=== PATIENT | male | born 1950 | race Caucasian/White ===

== ENCOUNTER 2024-10-12 08:11 | Observation (INO) | payer MEDICARE, SELFPAY ==
[2024-10-12] VITALS (12 sets, daily range): BP systolic 116–136; BP diastolic 70–81; PULSE 65–96; RESP 12–18; TEMP 36.3–36.6; O2SAT 94–98; BMI 34.7
--- NOTE | ~2024-10-12 | MR_ITS ---
MR brain/brain stem wo/w con Ordering provider: Stevo Anglin History: 74 years Male with . TIA . Comparison: CT head performed yesterday. Technique: MRI brain was performed with and without contrast. 20 mL ProHance was given IV. FINDINGS: BONES: Normal. CRANIOCERVICAL JUNCTION: normal. PITUITARY: Normal. MAJOR INTRACRANIAL VESSELS: Normal flow void. OPTIC NERVES AND CRANIAL NERVES VII AND VIII COMPLEXES: Grossly normal. BRAIN PARENCHYMA AND CSF SPACES: scattered T2 and FLAIR hyperintense signal areas are seen in the d eep white matter bilaterally. 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 The brainstem a nd cerebellum are normal. No acute or chronic intracranial hemorrhage. No extra axial fluid collectio ns. Diffusion weighted and ADC mapping images reveal no recent ischemia. No midline shift or mass eff ect. PARANASAL SINUSES: Minimal bilateral ethmoid sinus disease. Normal. Left nasal septal deviation. MASTOIDS: Normal SUPERFICIAL/SURROUNDING SOFT TISSUES: Normal. IMPRESSION: No acute intracranial process. Few scattered T2 and FLAIR hyperintense signal areas suggestive of deep white matter ischemic changes .. No enhancing lesions seen. Reviewed, dictated and finalized at location A. IMPRESSION: No acute intracranial process. Few scattered T2 and FLAIR hyperintense signal areas suggestive of deep white m atter ischemic changes.. No enhancing lesions seen.
--- NOTE | ~2024-10-12 | CT_ITS ---
EXAMINATION: CTA BRAIN/CAROTID DATE: 10/12/2024 09:45 INDICATION: Transient ischemic episode with dizziness. TECHNIQUE: Computed tomographic angiography (CTA) of the head and neck was performed with 100 mL Omni paque-350 intravenous contrast. Multiplanar reconstructions and maximum intensity projection 3D-recon structions of the carotid arteries and of the intracranial arteries were created by the technologist on a separate workstation. Precontrast CT of the head was also obtained. Automated exposure control and iterative reconstruction technique were employed.The dose-length product was 1842.79 mGy-cm. COMPARISON: None. FINDINGS: Carotid arteries: Small amount of nonhemodynamically significant atherosclerotic plaque along the normal caliber aortic arch and the great vessels arising from the arch. Bilateral vertebral arteries are codominant with n o hematoma significant stenosis. There is 30% stenosis of the right carotid bulb relative to normal d istal artery lumen diameter (NASCET criteria). There is small amount of atherosclerotic plaque with 0 % stenosis of the left carotid bulb relative to normal distal artery lumen diameter. Head: No acute intracranial hemorrhage, acute infarction or abnormal extra axial fluid collection. Ventricl es are normal and symmetric. No mass/mass effect. Abnormally enhancing brain lesions on the postcontr ast imaging. Changes of bilateral intraocular lens replacement. The orbits, paranasal sinuses and mas toid air cells are normal. Intracranial arteries There is no hemodynamically significant stenosis in the vertebral, basilar and internal carotid arter ies. Vertebral arteries are codominant. There are no aneurysms identified. Both A1 and P1 segments a re patent. There is also a patent anterior communicating artery. Cerebral arterial arborization appea rs symmetric. IMPRESSION: 1. 30% stenosis of the right carotid bulb relative to normal distal artery lumen diameter (NASCET cri teria). 2. 0% stenosis of the left carotid bulb relative to normal distal artery lumen diameter. 3. Unremarkable cerebral CT angiogram with no hemodynamically significant stenosis, aneurysm or disse ction. 4. Normal brain with no acute intracranial process or abnormally enhancing brain lesions. Reviewed, dictated and finalized at location A. IMPRESSION: 1. 30% stenosis of the right carotid bulb relative to normal distal artery lume n diameter (NASCET criteria). 2. 0% stenosis of the left carotid bulb relative to normal distal artery lumen diameter. 3. Unremarkable cerebral CT angiogram with no hemodynamically significant steno sis, aneurysm or dissection. 4. Normal brain with no acute intracranial process or abnormally enhancing brai n lesions.
--- NOTE | 2024-10-12 08:13 | ECG_ITS ---
Test Date: 2024-10-12 08:15:43 Measurements Intervals [place] Rate: 77 P: 35 HI: 188 QRS: 13 QRSD: 102 T: 35 QT: 398 QTc: 453 Interpretive Statements SINUS RHYTHM LOW QRS VOLTAGE IN PRECORDIAL LEADS POSSIBLE INFERIOR MYOCARDIAL INFARCTION, AGE INDETERMINATE ANTEROSEPTAL INFARCT, AGE INDETERMINATE BASELINE ARTIFACT- I, III, AVR, AVL ABNORMAL ECG No previous ECG available for comparison Electronically Signed On 10-12-2024 13:02:35 CDT by Daniel Davis D.O.
[2024-10-12 08:24] LABS: Glucose Point of Care 222 mg/dl (65-105)
--- NOTE | 2024-10-12 08:44 | ED_ITS ---
HPI - General Adult General Chief complaint: Dizziness Stated complaint: dizziness Time Seen by Provider: 10/12/24 08:19 History of Present Illness HPI narrative: 74-year-old male presents emergency department for evaluation for episode lightheaded dizziness altered mental status and wobbling gait. Does have a prior history of CVA but denies any prior history of AFib with RVR. Upon arrival emergency department patient does feel back to his baseline. Patient initially walked into his daughter's home and she noticed that he did not look well and patient was complaining unsteady gait. They did give him food and symptoms lasted approximately 1 hour. EMS was called to transport the patient to the emergency department and patient was reportedly having some episodes of AFib with RVR Related Data Home Medications ?Medication ?Instructions ?Recorded ?Confirmed ?Last Taken ?Type aspirin 81 mg tablet,delayed 81 mg PO DAILY 04/30/19 10/12/24 10/12/24 History release atorvastatin 20 mg tablet 20 mg PO QPM 04/30/19 10/12/24 Unknown History carvedilol 3.125 mg PO BID 04/30/19 10/12/24 10/12/24 History metformin 1,500 mg PO 0800 04/30/19 10/12/24 1 Day Ago History ~04/29/19 zolpidem 10 mg PO QHS PRN insomnia 04/30/19 10/12/24 Unknown History empagliflozin 25 mg tablet 25 mg PO DAILY 10/12/24 10/12/24 Unknown History (Jardiance) ezetimibe 10 mg tablet 10 mg PO QPM 10/12/24 10/12/24 Unknown History furosemide 20 mg tablet 20 mg PO DAILY 10/12/24 10/12/24 10/12/24 History multivitamin (Daily Multi-Vitamin 1 tablet PO DAILY 10/12/24 10/12/24 10/12/24 History tablet) sacubitril 24 mg-valsartan 26 mg 1 tablet PO BID 10/12/24 10/12/24 10/12/24 History tablet (Entresto) Allergies Allergy/AdvReac Type Severity Reaction Status Date / Time No Known Allergies Allergy Verified 10/12/24 08:20 Review of Systems 2 Review of Systems: All systems reviewed & are unremarkable except as noted in HPI and below PMFSH Past Medical History Medical History (Updated 10/12/24 @ 18:16 by Stevo Anglin MD) Transient ischemic attack Gastroesophageal reflux disease Depression with anxiety Obstructive sleep apnea Type 2 diabetes mellitus Dyslipidemia Arthritis Hearing loss Vision loss Hypertension Coronary artery disease Surgical History Surgical History History of bilateral cataract extraction History of total left hip arthroplasty (2012) History of partial colectomy (2010) for diverticulitis History of cardiac catheterization History of coronary artery stent placement History of left hip replacement Family History Family History Other Cerebrovascular accident Malignant neoplasm of prostate Social History Social History Social History: Surrogate medical decision maker: Mica Roblero, spouse. Code status: Full code. Smoking status: Never smoker Alcohol intake: never Substance use: never Do You Feel Safe in your Home?: Yes Lack of Transportation: No Lack of Food: Never True Current Housing: I Have Housing Concerned About Future Housing: No Difficulty Paying Gas/Electric Bills: No Difficulty Paying for Meds: No Currently Unemployed: No Education: High School Diploma/GED Difficulty w/ Childcare or Family Care: No Living arrangements: with family Occupation/Education: retired Spiritual care concerns: No Exam 2 Narrative: APPEARANCE: Well appearing, no pain, no distress, well-nourished. HEAD: normocephalic, atraumatic. EYES: PERRLA/EOMI, conjunctivae clear. NOSE: Normal no drainage EARS:TMS clear with good light reflex. THROAT: Pharynx clear, no exudate. NECK: Supple. No adenopathy, no masses. RESPIRATORY: Airway patent, respirations nonlabored. Clear to auscultation bilaterally, no rales, rhonchi, wheezing. CARDIOVASCULAR: Regular rate and rhythm without murmurs rubs or gallops. ABDOMINAL: Soft, nontender, nondistended, normal bowel sounds MUSCULOSKELETAL: Moves all extremities. Strength/ROM intact, No edema, No calf tenderness. NEURO: Alert. Cranial nerves II through XII intact. Good gait. Good coordination. NIH score of 0 SKIN: Warm, dry. Normal Color Course Vital Signs Vital signs: Vital Signs Temperature 97.4 F L 10/12/24 08:11 Pulse Rate 78 04/26/25 08:11 Respiratory Rate 12 10/12/24 08:11 Blood Pressure 132/76 10/12/24 08:11 Pulse Oximetry 98 10/12/24 08:11 Oxygen Delivery Room Air 10/12/24 08:11 Temperature 97.8 F 10/12/24 13:00 Pulse Rate 83 10/12/24 13:37 Respiratory Rate 16 10/12/24 13:00 Blood Pressure 136/76 10/12/24 13:00 Pulse Oximetry 97 10/12/24 13:00 Oxygen Delivery Room Air 10/12/24 08:11 Medical Decision Making MDM Narrative Medical decision making narrative: 74-year-old male present to the emergency department for evaluation for a 1 hour episode of unstable gait altered mental status and intermittent AFib. Since arriving to the emergency department patient has had no further neurologic events had no episodes of atrial fibrillation. Patient is currently afebrile with no leukocytosis hemoglobin of 15.1 with no acute abnormalities on the patient's CMP other than an elevated blood sugar. Patient had no acute findings on his CTA. Case is discussed with Neurology and patient was admitted to the hospitalist for further workup including an MRI. Differential Diagnosis Differential Diagnosis: CVA, TIA, AFib Vital Signs Vital Signs: Vital Signs Temperature 97.4 F L 10/12/24 08:11 Pulse Rate 78 10/12/24 08:11 Respiratory Rate 12 10/12/24 08:11 Blood Pressure 132/76 10/12/24 08:11 Pulse Oximetry 98 10/12/24 08:11 Oxygen Delivery Room Air 10/12/24 08:11 Temperature 97.8 F 10/12/24 13:00 Pulse Rate 83 10/12/24 13:37 Respiratory Rate 16 10/12/24 13:00 Blood Pressure 136/76 10/12/24 13:00 Pulse Oximetry 97 10/12/24 13:00 Oxygen Delivery Room Air 10/12/24 08:11 Lab Data Lab results reviewed: Yes I reviewed the patient's lab results. 10/12/24 08:50 10/12/24 08:50 Labs: Lab Results 10/12/24 10/12/24 Range/Units 08:20 08:50 WBC 5.6 (4.5-10.0) K/mm3 RBC 4.86 (4.6-6.20) M/mm3 Hgb 15.1 (14.0-18.0) g/dL Hct 46.8 (42.0-52.0) % MCV 96.3 (80-100) fl MCH 31.1 (26-34) pg MCHC 32.3 (32-36) g/dl RDW 13.8 (11.5-14.5) % Plt Count 190 (150-375) k/mm3 MPV 10.0 (7.4-10.4) fl Immature Gran % (Auto) 0.4 (0-0.5) % Neut % (Auto) 69.6 (45.5-73.1) % Lymph % (Auto) 20.0 (18.3-44.2) % [place] % (Auto) 8.2 (2.6-8.5) % Eos % (Auto) 1.1 (0-4.4) % Baso % (Auto) 0.7 (0.2-1.2) % Lymph # (Auto) 1.12 (0.9-3.2) K/mm3 [place] # (Auto) 0.5 (0.1-0.6) K/mm3 Eos # (Auto) 0.1 (0-0.3) K/mm3 Baso # (Auto) 0.0 (0.0-0.1) K/mm3 Abs Immat Gran (auto) 0.02 (0.00-0.031) K/mm3 Absolute Neuts (auto) 3.9 (1.3-6.7) K/mm3 Absolute Nucleated RBC 0.000 (0.0-0.012) K/mm3 Nucleated RBC % 0.0 (0.0-0.2) % Sodium 139 (137-145) mmol/L Potassium 3.8 (3.4-5.0) mmol/L Chloride 107 (98-107) mmol/L Carbon Dioxide 23 (22-30) mmol/L Anion Gap 9 (4-12) mmol/L BUN 24 H (9-20) mg/dL Creatinine 0.77 (0.7-1.3) mg/dL Estim Creat Clear Calc 90 ml/min Estimated GFR > 60 (59 - ) Glucose 230 H (65-110) mg/dL POC Capillary Glucose 222 H (65-105) mg/dl Calcium 8.6 (8.4-10.2) mg/dL Magnesium 2.1 (1.6-2.3) mg/dL Total Bilirubin 0.6 (0.2-1.3) mg/dL AST 25 (17-59) U/L ALT 27 (6-50) U/L Alkaline Phosphatase 70 (38-126) U/L Total Protein 7.0 (6.3-8.2) g/dL Albumin 4.0 (3.5-5.1) g/dL TSH (Reflex) 1.790 (0.465-4.68) uIU/mL Imaging Data Radiologist's impression: Impressions Head/Neck CTA 10/12/24 10:00 IMPRESSION: 1. 30% stenosis of the right carotid bulb relative to normal distal artery lumen diameter (NASCET criteria). 2. 0% stenosis of the left carotid bulb relative to normal distal artery lumen diameter. 3. Unremarkable cerebral CT angiogram with no hemodynamically significant stenosis, aneurysm or dissection. 4. Normal brain with no acute intracranial process or abnormally enhancing brain lesions. Discharge Plan Discharge Clinical Impression: Transient ischemic attack Patient Disposition: Still a Patient Condition: Serious Quality Stroke Scale Stroke Scale 1: 1a Level of consciousness: alert-0 1b Level of consciousness questions: answers both correctly-0 1c Level of consciousness commands: obeys both correctly-0 2 Best gaze: normal-0 3 Visual: no visual loss-0 4 Facial palsy: normal-0 5a Motor: left arm: no drift-0 5b Motor: right arm: no drift-0 6a Motor: left leg: no drift-0 6b Motor: right leg: no drift-0 7 Limb ataxia: absent-0 8 Sensory: normal-0 9 Best language: no aphasia-0 10 Dysarthria: normal-0 11 Extinction and inattention: no abnormality-0 Level:: 0
[2024-10-12 08:58] LABS: Basophils Percent Auto 0.7 % (0.2-1.2); Eosinophils Absolute Auto 0.1 K/mm3 (0-0.3); Eosinophils Percent Auto 1.1 % (0-4.4); Hematocrit 46.8 % (42.0-52.0); Hemoglobin 15.1 g/dL (14.0-18.0); Immature Granulocyte Absolute 0.02 K/mm3 (0.00-0.031); Immature Granulocyte Percent A 0.4 % (0-0.5); Lymphocytes Absolute Auto 1.12 K/mm3 (0.9-3.2); Mean Corpuscular HGB Conc 32.3 g/dl (32-36); Mean Corpuscular Hemoglobin 31.1 pg (26-34); Mean Corpuscular Volume 96.3 fl (80-100); Monocytes Absolute Auto 0.5 K/mm3 (0.1-0.6); Monocytes Percent Auto 8.2 % (2.6-8.5); Neutrophils Absolute Auto 3.9 K/mm3 (1.3-6.7); Neutrophils Percent Auto 69.6 % (45.5-73.1); Platelet Count Result 190 k/mm3 (150-375); Red Blood Count 4.86 M/mm3 (4.6-6.20); Red Cell Distribution Width 13.8 % (11.5-14.5); White Blood Count 5.6 K/mm3 (4.5-10.0)
--- OUTSIDE RECORDS SUMMARY | 2024-10-12 08:59 | XMS_ITS | Encounter Summary ---
Author Organization [facility] Address [facility] [place] [address] Care Team Providers Care Track Rider Name Role Phone Vipul Núñez Bianca SHAFER Primary Care Provider + Christopher Cain MD Unavailable [phone] Ian Sandoval MD Unavailable Encounter Details Date Type Department Care Team (Late st Contact Info) Description 04/28/2021 Abstract [facility] [address] Yisel Alanis MA Social History Tobacco Use Types Packs/Day Years Used Date Smoking Tobacco: Never Smokeless Tobacco: Never Alcohol Use Standard Drinks/Week Comments No 0 (1 standard drink = 0.6 oz pur e alcohol) AUDIT-C Answer Date Recorded Frequency of Alcohol Consumption Never 07/30/2018 Average Number of Drinks Not on file 019 Frequency of Binge Drinking Not on file 07/20 PHQ-2 Answer Date Recorded PHQ-2 Score - If the patient scores above 3, please move on to questions 3-9 4 08/27/2020 Sex and Gender Information Value Date Recorded Sex Assigned at Male 07/19/2024 8:07 AM CLOTH REELER Legal Sex Male 8:19 AM CLOTH REELER Gender Identity Male 07/21/2021 4:30 AM CLOTH REELER Sexual Orientation Not on file Occupation Industry Job Start Date Job End Date Not on file Not on file Not on file Not on file COVID-19 Exposure Response Date Recorded In the last month, have you been in contact with someone who was confirmed or suspected to have Coronavirus / COVID-19? No / Unsure 04/23/2021 9:20 AM CDT documented as of this encounter Plan of Treatment Upcoming Encounters Date Type Department Care Team (Late st Contact Info) Description 10/15/2024 8:40 AM CDT Office Visit [facility] Family & Internal Medicine - [address] [phone] Vipul Núñez [place] [address] [place] [address] 01/31/2025 11:45 AM CDT Office Visit [facility] [address] Christopher Cain MD 3 [facility] [address] [place] [phone] documented as of this encounter Procedures Procedure Name Priority Date/Time Associated Diagnosis Comments COMPREHENSIVE METABOLIC PANEL Routine 04/27/2021 LIPID PANEL Routine 04/27/2021 documented in this encounter Results * (ABNORMAL) COMPREHENSIVE METABOLIC PANEL (04/27/2021) SODIUM S/P/B 142 POTASSIUM S/P/B 5.0 CO2 27 CHLORIDE S/P/B 105 GLUCOSE 167 mg/dL CALCIUM S/P/B 9.3 BUN 21 CREATININE S/P/B 0.94 0.7 - 1.3 EGFR AFR. AMER. 95(A) <=90 EGFR NON-AFR. AMER. 82 <=90 ALKALINE PHOSPHATASE S/P/B 91 ALT 29 AST 17 BILIRUBIN TOTAL S/P/B 0.6 ALBUMIN S/P/B 4.1 3.5 - 5.0 TOTAL PROTEIN S/P/B 6.5 GLOBULIN 2.4 04/27/2021 [facility] Final Result * LIPID PANEL (04/27/2021) CHOLESTEROL 131 HDL 41 TRIGLYCERIDES 139 NON HDL CHOLESTEROL 90 LDL (CALCULATED) 68 04/27/2021 us [facility] Final Result documented in this encounter Visit Diagnoses Not on filedocumented in this encounter Additional Health Concerns Infection Onset Date Last Indicated Resolved Time COVID-19 Rule Out 06/30/2021 06/30/2021 2021 12:31 AM CLOTH REELER Assessment Noted Time PHQ-9 Depression Total Score: 11 021 9:07 AM CLOTH REELER documented as of this encounter Care Teams Track Rider Relationship Specialty Start Date End Date Vipul Núñez DO [address] [place] [phone] PCP - General FAMILY PRACTICE 06/14/18 Christopher Cain MD 3 [facility] [address] [place] [address] [place] Commercial Front Load Operator CARDIOVASCULAR DISEASE 07/19/18 Ian Sandoval MD 3 [facility] [address] [place] [address] COLON/RECTAL SURGERY 02/27/20 documented as of this encounter
--- OUTSIDE RECORDS SUMMARY | 2024-10-12 08:59 | XMS_ITS | Encounter Summary ---
Author Organization [facility] Address [address] [place] [address] Care Team Providers Care Graphic Pre Press Trades Worker Name Role Phone FrancescoVipul cano Bianca SHAFER Primary Care Provider + Christopher Cain MD Unavailable [phone] Ian Sandoval MD Unavailable [phone] Encounter Details Date Type Department Care Team (Late Contact Info) Description 08/07/2018 Abstract [facility] at [address] [phone] Yisel Alanis MA Social History Tobacco Use Types Packs/Day Years Used Date Smoking Tobacco: Never Smokeless Tobacco: Never Alcohol Use Standard Drinks/Week Comments No 0 (1 standard drink = 0.6 oz pur e alcohol) AUDIT-C Answer Date Recorded Frequency of Alcohol Consumption Never 07/30/2018 Average Number of Drinks Not on file 019 Frequency of Binge Drinking Not on file 07/20 Sex and Gender Information Value Date Recorded Sex Assigned at Male 07/19/2024 8:07 AM BEAMER HELPER Legal Sex Male 8:19 AM BEAMER HELPER Gender Identity Male 07/21/2021 4:30 AM BEAMER HELPER Sexual Orientation Not on file documented as of this encounter Plan of Treatment Upcoming Encounters Date Type Department Care Team (Late Contact Info) Description 10/15/2024 8:40 AM CDT Office Visit [facility] Medical Group Family & Internal Medicine [address] [place] [address] Vipul Núñez, [address] [place] [address] 01/31/2025 11:45 AM CDT Office Visit [facility] [phone] [place] [address] Christopher Cain MD 3 [facility] [address] [place] [phone] documented as of this encounter Procedures Procedure Name Priority Date/Time Associated Diagnosis Comments LIPID PANEL Routine 11/16/2018 LDL, CHOLESTEROL Routine 08/06/2018 LIPOPROTEIN A Routine 08/06/2018 documented in this encounter Results * LIPID PANEL (11/16/2018) CHOLESTEROL 126 HDL 35 TRIGLYCERIDES 103 NON HDL CHOLESTEROL 91 LDL (CALCULATED) 72 11/16/2018 [facility] Final Result * LIPOPROTEIN A (08/06/2018) LIPOPROTEIN (A) <10 <75 08/06/2018 us [facility] Final Result * LDL, CHOLESTEROL (08/06/2018) DIRECT LDL 89 08/06/2018 us [facility] Final Result documented in this encounter Visit Diagnoses Not on filedocumented in this encounter Additional Health Concerns Infection Onset Date Last Indicated Resolved Time COVID-19 Rule Out 02/29/2020 02/29/2020 03/01/2020 10:51 PM CDT COVID-19 Rule Out 09/19/2020 09/19/2020 09/20/2020 4:40 PM CDT COVID-19 Rule Out 06/30/2021 06/30/2021 2021 12:31 AM BEAMER HELPER Assessment Noted Time PHQ-9 Depression Total Score: 18 019 8:41 AM BEAMER HELPER documented as of this encounter Care Teams Graphic Pre Press Trades Worker Relationship Specialty Start Date End Date Vipul Núeñz DO [address] [place] [phone] PCP - General FAMILY PRACTICE 06/14/18 Christopher Cain MD 3 [facility] [address] [place] [address] [place] CARDIOVASCULAR DISEASE 07/19/18 Ian Sandoval MD 3 [facility] [address] [place] [phone] COLON/RECTAL SURGERY 02/27/20 documented as of this encounter
--- OUTSIDE RECORDS SUMMARY | 2024-10-12 08:59 | XMS_ITS | Encounter Summary ---
Author Organization [facility] Address [facility] [place] [address] Care Team Providers Care Pick Up Man Name Role Phone Vipul Núñez Bianca SHAFER Primary Care Provider + Christopher Cain MD Unavailable [phone] Ian Sandoval MD Unavailable [phone] Encounter Details Date Type Department Care Team (Late st Contact Info) Description 10/09/2020 Abstract [facility] [address] Yisel Alanis MA Social History Tobacco Use [...] Sex Assigned at Male 07/19/2024 8:07 AM MOBILE HOME SERVICER Legal Sex Male 8:19 AM MOBILE HOME SERVICER Gender Identity Male 07/21/2021 4:30 AM MOBILE HOME SERVICER Sexual Orientation Not on file Occupation Industry Job Start Date Job End Date Not on file Not on file Not on file Not on file COVID-19 Exposure Response Date Recorded In the last month, have you been in contact with someone who was confirmed or suspected to have Coronavirus / COVID-19? No / Unsure 10/08/2020 7:44 PM CDT documented as of this encounter Plan of Treatment Upcoming Encounters Date Type Department Care Team (Late st Contact Info) Description 10/15/2024 8:40 AM CDT Office Visit [facility] Medical Group Family & Internal Medicine - [address] [phone] Vipul Núñez DO [address] [place] [address] 01/31/2025 11:45 AM CDT Office Visit [facility] [phone] Christopher Cain MD 3 [facility] [address] [place] [phone] documented as of this encounter Procedures Procedure Name Priority Date/Time Associated Diagnosis Comments BASIC METABOLIC PANEL Routine 07/27/2023 KAPPA LAMBDA FREE RATIO (QST) Routine 11/06/2020 LIPID PANEL Routine 10/08/2020 CK (CPK) Routine 10/08/2020 documented in this encounter Results * (ABNORMAL) BASIC METABOLIC PANEL (07/27/2023) SODIUM S/P/B 141 POTASSIUM S/P/B 4.8 CO2 33 CHLORIDE S/P/B 105 GLUCOSE 172 mg/dL CALCIUM S/P/B 9.4 BUN 25 CREATININE S/P/B 0.84 0.7 - 1.3 EGFR NON-AFR. AMER. 93(A) <=90 07/27/2023 us Default History Genericprovider LABORATORY Final Result * KAPPA LAMBDA FREE RATIO (QST) (11/06/2020) KAPPA/LAMBDA FREE 1.35 0.26 - 1.65 KAPPA LIGHT CHAIN FREE (U) 19.4 3.3 - 19.4 LAMBDA LIGHT CHAIN FREE (U) 24HR 14.4 5.7 - 26.3 11/06/2020 us Doc [facility] Final Result * CK (CPK) (10/08/2020) CPK 147 10/08/2020 us [facility] Final Result * LIPID PANEL (10/08/2020) CHOLESTEROL 154 HDL 35 TRIGLYCERIDES 148 NON HDL CHOLESTEROL 119 LDL (CALCULATED) 94 10/08/2020 us Doc [facility] Final Result documented in this encounter Visit Diagnoses Not on filedocumented in this encounter Additional Health Concerns Infection Onset Date Last Indicated Resolved Time COVID-19 Rule Out 06/30/2021 06/30/2021 2021 12:31 AM MOBILE HOME SERVICER Assessment Noted Time PHQ-9 Depression Total Score: 11 021 9:07 AM MOBILE HOME SERVICER documented as of this encounter Care Teams Pick Up Man Relationship Specialty Start Date End Date Vipul Núñez DO [address] [place] [address] PCP - General FAMILY PRACTICE 06/14/18 Christopher Cain MD 3 [facility] [address] [place] [phone] [place] Principal Statistical Programmer CARDIOVASCULAR DISEASE 07/19/18 Ian Sandoval MD 3 [facility] [address] [place] [phone] COLON/RECTAL SURGERY 02/27/20 documented as of this encounter
--- OUTSIDE RECORDS SUMMARY | 2024-10-12 08:59 | XMS_ITS | Encounter Summary ---
Author Organization [facility] Address [address] [place] [address] Care Team Providers Care Publishing Specialist Name Role Phone Vipul Núñez Primary Care Provider + Christopher Cain MD Unavailable [phone] Ian Sandoval MD Unavailable [phone] Encounter Details Date Type Department Care Team (Late st Contact Info) Description 07/05/2024 [facility] [phone] Christopher Cain MD [address] [phone] Blood test Social History Tobacco Use Types Packs/Day Years Used Date Smoking Tobacco: Never Smokeless Tobacco: Never Comments:na Alcohol Use Standard Drinks/Week Comments Not Currently 0 (1 standard drink = 0.6 oz pur e alcohol) AUDIT-C Answer Date Recorded Q1: How often do you have a drink containing alcohol? Monthly or less 11/28/2022 Q2: How many drinks containi ng alcohol do you have on a typical day when you are drinking? Patient does not drink Q3: How often do you have si x or more drinks on one occasion? Never 11/28/2022 PHQ-2 Answer Date Recorded Patient Health Questionnaire-2 Score 1 03/13/2024 Sex and Gender Information Value Date Recorded Sex Assigned at Male 07/19/2024 8:07 AM HOTBED TRANSFER OPERATOR Legal Sex Male 8:19 AM HOTBED TRANSFER OPERATOR Gender Identity Male 07/21/2021 4:30 AM HOTBED TRANSFER OPERATOR Sexual Orientation Not on file Occupation Industry Job Start Date Job End Date Not on file Not on file Not on file Not on file documented as of this encounter Plan of Treatment Upcoming Encounters Date Type Department Care Team (Late st Contact Info) Description 10/15/2024 8:40 AM CDT Office Visit [facility] Medical [facility] Family & Internal Medicine - [address] [phone] Vipul Núñez DO [address] [place] [address] 01/31/2025 11:45 AM CDT Office Visit [facility] [phone] Christopher Cain MD [address] [phone] documented as of this encounter Visit Diagnoses Not on filedocumented in this encounter Additional Health Concerns Assessment Noted Time PHQ-9 Depression Total Score: 2 11/29/19 23 8:16 AM CDT documented as of this encounter Care Teams Publishing Specialist Relationship Specialty Start Date End Date Vipul Núñez DO [address] [place] [address] PCP - General FAMILY PRACTICE 06/14/18 Christopher Cain MD 3 [facility] [address] [place] [phone] [place] [employer] Buffer CARDIOVASCULAR DISEASE 07/19/18 Ian Sandoval MD 3 [facility] [address] [place] [phone] COLON/RECTAL SURGERY 02/27/20 documented as of this encounter
--- OUTSIDE RECORDS SUMMARY | 2024-10-12 08:59 | XMS_ITS | Clinical Summary ---
Author Organization [facility] Address [address] [place] [address] Care Team Providers Care Hearing Aid Repairer Name Role Phone BrooklynnVipul doe Bianca SHAFER Primary Care Provider + Christopher Cain MD Unavailable [phone] Ian Sandoval MD Unavailable [phone] Allergies No known active allergies Medications aspirin EC (ECOTRIN) 81 MG tablet Take 1 tablet (81 mg total) by mouth nightly. Active Glucose Blood (ONE TOUCH ULTRA TEST STRIPS) test stripIndications: Type 2 diabetes mellitus with diabetic mononeuropathy, without long-term current use of insulin ([facility]) 1 each by Other route daily. 100 each 3 03/12/20 19 Active CPAP SUPPLIESIndicatio ns:CATE (obstructive sleep apnea) Use nightly as instructed 3 Device 10/22/19 20 Active CPAP TUBINGIndications :CATE (obstructive sleep apnea) Change as instructed 3 each 10/22/19 20 Active CPAP MASKIndications:O SA (obstructive sleep apnea) Use nightly as directed 1 each 10/22/19 20 Active NITROGLYCERIN 0.[address] 1 TABLET UNDER THE TONGUE EVERY 5 MINUTES NEEDED FOR CHEST PAIN (MAXIMUM OF 3 DOSES). 25 tablet 1 06/30/19 22 Active Blood Glucose Monitoring Suppl (ONE TOUCH ULTRA 2) w/Device KitIndications:Ty pe 2 diabetes mellitus with diabetic mononeuropathy, without long-term current use of insulin ([facility] HHS/HCC) Check blood sugar once daily in AM when fasting 1 kit 04/27/20 22 Active Lancets (ONETOUCH ULTRASOFT) lancetsIndication s:Type 2 diabetes mellitus with diabetic mononeuropathy, without long-term current use of insulin ([facility] HHS/[facility]) Check blood sugar once daily in AM when fasting 1 each 04/27/20 22 Active Multiple Vitamins-Minerals (CENTRUM SILVER 50+MEN OR) Take 1 tablet by mouth daily. Active zolpidem (AMBIEN) 10 MG tabletIndications :Primary insomnia TAKE 1 TABLET NIGHTLY NEEDED FOR SLEEP 30 tablet 2 09/07/19 24 Active ezetimibe (ZETIA) 10 MG tablet Take 1 tablet (10 mg total) by mouth daily. 90 tablet 3 01/19/20 24 2024 Active carvedilol (COREG) 3.125 MG tabletIndications :Essential hypertension take 1 tablet by mouth twice a day 180 tablet 1 02/26/20 24 Active ENTRESTO 24-26 MG tablet take 1 tablet by mouth twice a day 60 tablet 5 03/20/20 24 Active tirzepatide (MOUNJARO) 2.5 MG/0.5ML injectionIndicati ons:Diabetes Mellitus Inject 2.5 mg into the skin every 7 days. Indications: Diabetes 2 mL 07/19/19 25 Active JARDIANCE 25 MG tabletIndications :Type 2 diabetes mellitus with diabetic mononeuropathy, without long-term current use of insulin ([facility] HHS/[facility]),Chronic combined systolic and diastolic congestive heart failure ([facility] HHS/HCC) TAKE 1 TABLET BY MOUTH EVERY DAY 90 tablet 1 07/30/19 25 Active furosemide (LASIX) 20 MG tabletIndications :Chronic heart failure with preserved ejection fraction ([facility] HHS/HCC) TAKE 1 TABLET BY MOUTH EVERY DAY 90 tablet 09/10/19 25 Active metFORMIN ER (GLUCOPHAGE-XR) 500 MG 24 hr tabletIndications :Type 2 diabetes mellitus with diabetic mononeuropathy, without long-term current use of insulin ([facility] HHS/HCC) TAKE 3 TABLETS (1,500 MG TOTAL) BY MOUTH DAILY WITH BREAKFAST 270 tablet 2 09/21/19 25 Active atorvastatin (LIPITOR) 80 MG tabletIndications :Mixed hyperlipidemia TAKE 1 TABLET BY MOUTH EVERYDAY AT BEDTIME 90 tablet 10/08/19 25 Active metFORMIN ER (GLUCOPHAGE-XR) 500 MG 24 hr tabletIndications :Type 2 diabetes mellitus with diabetic mononeuropathy, without long-term current use of insulin ([facility]) Take 3 tablets (1,500 mg total) by mouth daily with breakfast. 270 tablet 2 12/25/19 24 2024 Discontinued atorvastatin (LIPITOR) 80 MG tabletIndications :Mixed hyperlipidemia TAKE 1 TABLET BY MOUTH EVERYDAY AT BEDTIME 90 tablet 07/08/19 25 2024 Discontinued Active Problems Problem Noted Date Diagnosed Date Aneurysm of ascending aorta without rupture 06/21 Chronic heart failure with p reserved ejection fraction ([facility]) 07/19/2024 Major depressive disorder wi th single episode, in partial remission 06/07/2023 TIA (transient ischemic attack) 09/02/2022 Morbid (severe) obesity due to excess calories 0 08/23/2022 Hyperlipidemia associated wi th type 2 diabetes mellitus ([facility]) 08/27/2020 S/P carpal tunnel release 03/04/2020 Erectile dysfunction, unspecified erectile dysfu nction type 03/04/2020 Wrigth's cyst of knee, right 06/05/2019 BMI 39.0-39.9,adult 09/17/2018 CATE (obstructive sleep apnea) 07/30/2018 Type 2 diabetes mellitus wit h diabetic mononeuropathy, without long-term current use of insulin ([facility]) 06/25/2018 Anxiety 06/25/2018 Hypertension 06/25/2018 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 06/25/2018 Hyperlipidemia, unspecified hyperlipidemia type 06/25/2018 Primary insomnia 06/25/2018 Knee pain 09/02/2016 History of coronary artery stent placement 02/04 Hernia of anterior abdominal wall 02/14/2014 Cardiomyopathy ([facility]) 07/03/2013 CHF (congestive heart failure) ([facility]) 06/18/2013 Arthralgia of hip 10/22/2012 Hypertension associated with type 2 diabetes mellitus ([facility]) 06/19/2008 Resolved Problems Problem Noted Date Diagnosed Date Resolved Date BMI 40.0-44.9, adult 08/27/2020 022 Bilateral hand pain 06/25/2018 08/24/19 23 Intestinal obstruction ([facility]/HCC [facility]) 12/16/2015 06/07/2023 Class 3 severe obesity due t o excess calories with serious comorbidity in adult, unspecified BMI 01/15/2014 11/02/2021 Surgical follow-up care 03/18/201302/17 Diverticulitis of colon 10/15/201005/20 Encounters Date Type Department Care Team Description 07/30/2024 Scan [facility] INFO SRVCS Scanned, Doc Med Group 07/26/2024 11:45 AM SUPERVISOR BODY ASSEMBLY Office Visit [facility] [phone] Martina Caro MD Cahill, Thomas B, MD Coronary Artery Disease (6MO) 07/26/2024 Travel 07/19/2024 8:00 AM SUPERVISOR BODY ASSEMBLY Office Visit [facility] Medical Group Family & Internal Medicine - [address] [phone] Vipul Núñez, DO Hypertension; Diabetes 07/19/2024 Travel from Last 3 Months Immunizations Immunization Administration Dates Next Due Fluzone High Dose (IIV, triv alent, 0.5mL) 04/08/2024 Fluzone High Dose - >Age 65 (Prefilled Syringe) 04/27/2022,04/27/2022,04/05/2021,2019,06/05/2019,06/26/2018 Influenza (Generic) 04/03/2014 Influenza Adult (Generic) 04/03/2023 MODERNA COVID-19 (12+) MRNA, LNP-S, PF, 100 MCG/ 0.5 ML DOSE 08/25/2020,07/23/2020 MODERNA COVID-19 (FLIGHT ENGINEER MANAGER BREA ELISABETH), MRNA, LNP-S, PF, 50 MCG/ 0.25 ML DOSE 05/10/2021 Pneumococcal (Pneumovax 23) 10/22/2019 Pneumococcal (Prevnar 13) 06/26/2018 Shingrix 05/31/2023,02/27/2023 Tdap (Historical Only-select from [place]) 10/22/2019 Family History Medical History Relation Comments Arthritis Father Cancer Father lung Lung Disease Father Stroke Maternal Grandmother Heart Disease Mother Hypertension Mother Lung Disease Mother Stroke Mother Cancer Sister 1 breast cancer Relation Status Comments Brother Alive Daughter 1 Alive Daughter 2 Alive Father (Age 63) of lung c ancer, loan examiner, smoker Maternal Grandmother (Age 89) Mother (Age 80) of COPD c omplications Sister 1 Alive Sister 2 Alive Son Alive Social History Tobacco Use Types Packs/Day Years Used Date Smoking Tobacco: Never Smokeless Tobacco: Never Tobacco Cessation:Counseling Given: Not Answered Comments:na Alcohol Use Standard Drinks/Week Comments Not [...] Date Recorded Patient Health Questionnaire-2 Score 1 07/19/2024 Sex and Gender Information Value Date Recorded Sex Assigned at Male 07/19/2024 8:07 AM SUPERVISOR BODY ASSEMBLY Legal Sex Male 8:19 AM SUPERVISOR BODY ASSEMBLY Gender Identity Male 07/21/2021 4:30 AM SUPERVISOR BODY ASSEMBLY Sexual Orientation Not on file Occupation Industry Job Start Date Job End Date Not on file Not on file Not on file Not on file Last Filed Vital Signs Vital Sign Reading Time Taken Comments Blood Pressure 106/62 07/26/2024 11:36 AM SUPERVISOR BODY ASSEMBLY Pulse 80 07/26/2024 11:36 AM SUPERVISOR BODY ASSEMBLY Temperature 36.3 C (97.3 F) 07/19/2024 8:08 AM SUPERVISOR BODY ASSEMBLY Respiratory Rate 18 07/19/2024 8:08 AM SUPERVISOR BODY ASSEMBLY Oxygen Saturation 94% 07/26/2024 11:36 AM SUPERVISOR BODY ASSEMBLY Inhaled Oxygen Concentration - - Weight 110.9 kg (244 lb 8 oz) 07/26/2024 11:36 A M SUPERVISOR BODY ASSEMBLY Height 175.3 cm (5' 9 ) 07/26/2024 11:36 AM SUPERVISOR BODY ASSEMBLY Body Mass Index 36.11 07/26/2024 11:36 AM SUPERVISOR BODY ASSEMBLY Plan of Treatment Upcoming Encounters Date Type Department Care Team (Late st Contact Info) Description 10/15/2024 8:40 AM CDT Office Visit [facility] Medical Group Family & Internal Medicine - [id number] [place] [address] Vipul Núñez DO [address] [place] [address] 01/31/2025 11:45 AM CDT Office Visit [facility] [phone] Christopher Cain MD 3 [facility] [address] [place] [phone] Health Maintenance Due Date Last Done Comments RSV Immunization or 60+ Years (1 - Risk 60-74 years 1-dose series) 2011 Annual Medicare Wellness Visit 11/30/2023 11/28/2022 COVID-19 Vaccine ( season) 2024 04/08/2024, 03/13/2023, 03/02/2022, Additional history exists Colorectal Cancer Screening Colonoscopy (10 Years) 11/25/2024 11/14/2018 Postponed from 11/15/2023 (Patient Refused) Hemoglobin A1C 01/16/2025 07/19/2024, 02/18, 12/11/2023, Additional history exists Kidney Health Evaluation 03/13/2025 03/13/2024 Lipid Panel 03/13/2025 03/13/2024, 05/20, 02/03/2022, Additional history exists Diabetes: Retinopathy Eye Exam 12/06/2025 12/07/2023, 09/10/2021 DTaP, Tdap and Td Vaccines (2 - Td or Tdap) 10/21/2029 10/22/2019 Hepatitis C Completed 06/05/2019 Pneumococcal Vaccine: 50+ Years Completed 10/22/2019, 06/26/2018 Zoster Vaccines Completed 05/31/2023, 02/27/2023 PHQ-2 (Physician Kaw) Completed 07/19/2024 Meningococcal B Vaccine Aged Out No l onger eligible based on patient's age to complete this topic Meningococcal Vaccine Aged Out No bernadette sonido eligible based on patient's age to complete this topic RSV Immunizations Under 20 Months Aged Out No longer eligible based on patient's age to complete this topic Procedures Procedure Name Priority Date/Time Associated Diagnosis Comments COLLECT.CAPILLARY (FNGR,HEEL,EAR) Routine 07/19/2024 8:03 AM SUPERVISOR BODY ASSEMBLY Type 2 diabetes mellitus with diabetic mononeuropathy, without long-term current use of insulin HEMOGLOBIN, GLYCOSYLATED Routine 07/19/2024 Type 2 diabetes mellitus with diabetic mononeuropathy, without long-term current use of insulin ([facility]/H[facility]/HCC) LIPID PANEL Routine 03/13/2024 9:54 AM CDT Type 2 diabetes mellitus with diabetic mononeuropathy, without long-term current use of insulin Hyperlipidemia associated with type 2 diabetes mellitus Hypertension associated with type 2 diabetes mellitus Balance disorder DIABETIC RETINOPATHY EXAM (NEGATIVE)(SCAN ORDER) Routine 12/07/2023 HEPATITIS C ANTIBODY Routine 06/05/2019 10:22 AM SUPERVISOR BODY ASSEMBLY Need for hepatitis C screening test COLONOSCOPY GENERIC (SCAN ORDER) Routine 11/14/2018 12:00 AM CDT from Last 3 Months or Most Recently Relevant to Health Maintenance Results * (ABNORMAL) HEMOGLOBIN, GLYCOSYLATED (07/19/2024) HGB A1C 7.4(A) % [facility] 07/19/2024 us Vipul Núñez DO LABORATORY Final Re sult [facility] [address] [place] [address], * LIPID PANEL (03/13/2024 9:54 AM CDT) CHOLESTEROL 132 <200 MG/DL 03/13/2024 4:43 PM CDT [facility] KERRY BLANCHARD TRIGLYCERIDES 105 <150 MG/DL 03/13/2024 4:43 PM CDT [facility] HDL 45 >40 MG/DL 03/13/2024 4:43 PM CDT [facility] LDL-C 66 <100 MG/DL 03/13/2024 4:43 PM CDT [facility] VLDL CALCULATION 21 5 - 28 MG/DL 03/13/2024 4:43 PM CDT [facility] CHOL/HDL RATIO 2.9 0.0 - 4.0 03/13/2024 4:43 PM CDT [facility] LDL/HDL 1.5 0.41 - 2.13 03/13/2024 4:43 PM CDT [facility] NON HDL CHOLESTEROL 87 <140 MG/DL 03/13/2024 4:43 PM CDT [facility] 03/13/2024 9:54 AM CDT Vipul Núñez DO LABORATORY Final Re sult Performing Organization Address City/[facility]/ZIP Co de Phone Number [facility] [address] [place] [address], * DIABETIC RETINOPATHY EXAM (NEGATIVE) (12/07/2023) Doc Med Group Scanned SCANNING Final Resu lt Performing Organization Address [facility] Co de Phone Number [facility] * HEPATITIS C ANTIBODY (06/05/2019 10:22 AM SUPERVISOR BODY ASSEMBLY) HEPATITIS C AB NON-REACT JODI NON-REACT JODI [facility] SIGNAL TO CUTOFF 0.01 <1.00 [facility] Comment: HCV antibody was non-reactive. There is no laboratory evidence of HCV infection. In most cases, no further action is required. However, if recent HCV exposure is suspected, a test for HCV RNA (test code 15387) is suggested. For additional information please refer to http://education.Kamego/faq/EHQ81h8 (This link is being provided for informational/ educational purposes only.) 06/05/2019 10:2 2 AM SUPERVISOR BODY ASSEMBLY 06/06/2019 3:41 AM SUPERVISOR BODY ASSEMBLY Narrative Resulting Agency Comment Performing Organization Information: Site ID: [id number] Name: [facility] Mancilla Address: [address] [address] Director: Nick Kraft D.O., MPH us Vipul Núñez DO LABORATORY Final Re sult [facility] * COLONOSCOPY (11/14/2018 12:00 AM CDT) 11/14/2018 us Documents Scanned SCANNING Final Result Performing Organization Address City/[facility]/ZIP [facility] de [facility] Number [facility] [address] [address] from Last 3 Months or Most Recently Relevant to Health Maintenance Insurance Care Teams Hearing Aid Repairer Relationship Specialty Start Date End Date Vipul Núñez DO [address] [place] [id number] PCP - General FAMILY PRACTICE 06/14/18 Christopher Cain MD [address] [place] [phone] [facility] Specialist CARDIOVASCULAR DISEASE 07/19/18 Ian Sandoval MD [address] [phone] COLON/RECTAL SURGERY 02/27/20
--- OUTSIDE RECORDS SUMMARY | 2024-10-12 08:59 | XMS_ITS | Encounter Summary ---
Author Organization [facility] Address [address] [place] [address] Care Team Providers Care Parks And Recreation Manager Name Role Phone Vipul Núñez Primary Care Provider + Christopher Cain MD Unavailable [phone] Ian Sandoval MD Unavailable [phone] Encounter Details Date Type Department Care Team (Latest Contact Info) Description 05/30/[address] [facility] [phone] Christopher Cain MD [address] [phone] Blood test before upcoming appointment Social History Tobacco Use Types Packs/Day Years [...] 3, please move on to questions 3-9 0 06/30/2021 Sex and Gender Information Value Date Recorded Sex Assigned at Male 07/19/2024 8:07 AM SHEET METAL WORKER MAINTENANCE Legal Sex Male 8:19 AM SHEET METAL WORKER MAINTENANCE Gender Identity Male 07/21/2021 4:30 AM SHEET METAL WORKER MAINTENANCE Sexual Orientation Not on file Occupation Industry Job Start Date Job End Date Not on file Not on file Not on file Not on file COVID-19 Exposure Response Date Recorded In the last 10 days, have yo u been in contact with someone who was confirmed or suspected to have Coronavirus/COVID-19? No / Unsure 05/16/2022 8:18 AM SHEET METAL WORKER MAINTENANCE documented as of this encounter Plan of Treatment Upcoming Encounters Date Type Department Care Team (Late st Contact Info) Description 10/15/2024 8:40 AM CDT Office Visit [facility] Medical Group Family & Internal Medicine - [address] [phone] Vipul Núñez DO [address] [place] [address] 01/31/2025 11:45 AM CDT Office Visit [facility] [phone] Christopher Cain MD 3 [facility] [address] [place] [phone] documented as of this encounter Visit Diagnoses Not on filedocumented in this encounter Additional Health Concerns Assessment Noted Time PHQ-9 Depression Total Score: 0 06/30/19 22 9:32 AM SHEET METAL WORKER MAINTENANCE documented as of this encounter Care Teams Parks And Recreation Manager Relationship Specialty Start Date End Date Vipul Núñez DO [address] [place] [phone] PCP - General FAMILY PRACTICE 06/14/18 Christopher Cain MD 3 [facility] [address] [place] [phone] [place] Finish Mender CARDIOVASCULAR DISEASE 07/19/18 Ian Sandoval MD 3 [facility] [address] [place] [address] COLON/RECTAL SURGERY 02/27/20 documented as of this encounter
--- OUTSIDE RECORDS SUMMARY | 2024-10-12 08:59 | XMS_ITS | Clinical Summary ---
Author Organization [facility] Address [address] [place] [address] Care Team Providers Care Machinery Repair Maintenance Supervisor Name Role Phone Unavailable Primary Care Provider Unavailabl e Social History Tobacco Use Types Packs/Day Years Used Date Smoking Tobacco: Never Assessed Sex and Gender Information Value Date Recorded Sex Assigned at Not on file Legal Sex Male 4:28 PM DEVULCANIZER CHARGER Gender Identity Not on file Sexual Orientation Not on file Plan of Treatment Health Maintenance Due Date Last Done Comments Hepatitis C Virus (HCV) Screening 1951 Colonoscopy 1996 Colorectal Cancer Screening 1996 Cologuard 2001 Immunochemical Fecal Occult Blood 2001 Zoster Immunization (1 of 2) 2001 Influenza Immunization (#1) 02/18/202402/17, 06/05/2019, 06/26/2018 SARS-COV-2 Immunization (2023- season) 2024 Respiratory Syncytial Virus (RSV) Immunization (Adult) (1 - 1-dose 75+ series) 2026 DTaP/Tdap/Td Immunization Discontinued 10/22/2019 Pneumococcal Immunization (5 0+ years) Completed 10/22/2019, 06/26/2018 Pneumococcal Immunization Combined Discontinued 10/22/2019, 06/26/2018 TdaP Immunization Completed 10/22/2019 Hepatitis B Immunization Aged Out No longer eligible based on patient's age to complete this topic Meningococcal Immunization (ACWY) Aged Out No longer eligible based on patient's age to complete this topic Rotavirus Immunization Aged Out No lo nger eligible based on patient's age to complete this topic
--- OUTSIDE RECORDS SUMMARY | 2024-10-12 08:59 | XMS_ITS | Encounter Summary ---
Author Organization [facility] Address [address] [place] [address] Care Team Providers Care Employment Appeals Examiner Name Role Phone Vipul Núñez Bianca SHAFER Primary Care Provider + Christopher Cain MD Unavailable [phone] Ian Sandoval MD Unavailable [phone] Encounter Details Date Type Department Care Team (Late st Contact Info) Description 08/24/2021 [employer] Message [facility] [address] [address] [place] Provider lab results Social History Tobacco Use Types Packs/Day Years [...] Sex Assigned at Male 07/19/2024 8:07 AM MACHINE WOODWORKING SANDER Legal Sex Male 8:19 AM MACHINE WOODWORKING SANDER Gender Identity Male 07/21/2021 4:30 AM MACHINE WOODWORKING SANDER Sexual Orientation Not on file Occupation Industry Job Start Date Job End Date Not on file Not on file Not on file Not on file COVID-19 Exposure Response Date Recorded In the last 10 days, have yo u been in contact with someone who was confirmed or suspected to have Coronavirus/COVID-19? No / Unsure 08/06/2021 11:17 AM MACHINE WOODWORKING SANDER documented as of this encounter Plan of Treatment Upcoming Encounters Date Type Department Care Team (Late st Contact Info) Description 10/15/2024 8:40 AM CDT Office Visit [facility] Medical Group Family & Internal Medicine - [address] [phone] Vipul Núñez DO [address] [place] [address] 01/31/2025 11:45 AM CDT Office Visit [facility] [phone] Christopher Cain MD 3 [facility] [address] [place] [phone] documented as of this encounter Visit Diagnoses Not on filedocumented in this encounter Additional Health Concerns Assessment Noted Time PHQ-9 Depression Total Score: 0 06/30/19 22 9:32 AM MACHINE WOODWORKING SANDER documented as of this encounter Care Teams Employment Appeals Examiner Relationship Specialty Start Date End Date Vipul Núñez DO [address] [place] [address] PCP - General FAMILY PRACTICE 06/14/18 Christopher Cain MD 3 [facility] [address] [place] [phone] [place] Singer CARDIOVASCULAR DISEASE 07/19/18 Ian Sandoval MD 3 [facility] [address] [place] [phone] COLON/RECTAL SURGERY 02/27/20 documented as of this encounter
--- OUTSIDE RECORDS SUMMARY | 2024-10-12 08:59 | XMS_ITS | Encounter Summary ---
Author Organization [facility] - [facility] Address [address] [place] [address] Care Team Providers Care Acting Manager Name Role Phone Vipul Núñez Bianca SHAFER Primary Care Provider + Christopher Cain MD Unavailable [phone] Ian Sandoval MD Unavailable [phone] Encounter Details Date Type Department Care Team (Latest Contact Info) Description 03/10/2020 MyCInclinixt Message Enc [facility] Multispecialty Care - [address], [address] [place] [address] Jorje Oneill MD [address] [place] [address] RE: RE: RE: Question Social History Tobacco Use Types Packs/Day Years Used Date Smoking Tobacco: Never Smokeless Tobacco: Never Alcohol Use Standard Drinks/Week Comments No 0 (1 standard drink = 0.6 oz pur e alcohol) AUDIT-C Answer Date Recorded Frequency of Alcohol Consumption Never 07/30/2018 Average Number of Drinks Not on file 019 Frequency of Binge Drinking Not on file 07/20 PHQ-2 Answer Date Recorded PHQ-2 Score 0 10/22/2019 Sex and Gender Information Value Date Recorded Sex Assigned at Male 07/19/2024 8:07 AM MAXILLOFACIAL PROSTHODONTIST Legal Sex Male 8:19 AM MAXILLOFACIAL PROSTHODONTIST Gender Identity Male 07/21/2021 4:30 AM MAXILLOFACIAL PROSTHODONTIST Sexual Orientation Not on file Occupation Industry Job Start Date Job End Date Not on file Not on file Not on file Not on file COVID-19 Exposure Response Date Recorded In the last month, have you been in contact with someone who was confirmed or suspected to have Coronavirus / COVID-19? No / Unsure 03/09/2020 8:51 AM CDT documented as of this encounter Plan of Treatment Upcoming Encounters Date Type Department Care Team (Late st Contact Info) Description 10/15/2024 8:40 AM CDT Office Visit [facility] Family & Internal Medicine - [address] [phone] Vipul Núñez DO [address] [place] [phone] 01/31/2025 11:45 AM CDT Office Visit [facility]-[address] [phone] Christopher Cain MD [address] [facility] [address] [place] [phone] documented as of this encounter Visit Diagnoses Not on filedocumented in this encounter Additional Health Concerns Infection Onset Date Last Indicated Resolved Time COVID-19 Rule Out 09/19/2020 09/19/2020 09/20/2020 4:40 PM CDT COVID-19 Rule Out 06/30/2021 06/30/2021 2021 12:31 AM MAXILLOFACIAL PROSTHODONTIST Assessment Noted Time PHQ-9 Depression Total Score: 4 10/22/19 20 9:18 AM CDT documented as of this encounter Care Teams Acting Manager Relationship Specialty Start Date End Date Vipul Núñez DO [address] [place] [phone] PCP - General FAMILY PRACTICE 06/14/18 Christopher Cain MD 3 [facility] [address] [place] [phone] [employer] Journalist CARDIOVASCULAR DISEASE 07/19/18 Ian Sandoval MD 3 [facility] [address] [place] [phone] COLON/RECTAL SURGERY 02/27/20 documented as of this encounter
--- OUTSIDE RECORDS SUMMARY | 2024-10-12 08:59 | XMS_ITS | Encounter Summary ---
Author Organization [facility] Address [facility] access hospital[address] [place] [address] Care Team Providers Care Child Advocate Name Role Phone Vipul Núñez Bianca SHAFER Primary Care Provider + Christopher Cain MD Unavailable [phone] Ian Sandoval MD Unavailable [phone] Encounter Details Date Type Department Care Team (Late st Contact Info) Description 08/24/2021 Abstract [facility]-[address] [address] Yisel Alanis MA Social History Tobacco Use [...] Sex Assigned at Male 07/19/2024 8:07 AM NURSE Legal Sex Male 8:19 AM NURSE Gender Identity Male 07/21/2021 4:30 AM NURSE Sexual Orientation Not on file Occupation Industry Job Start Date Job End Date Not on file Not on file Not on file Not on file COVID-19 Exposure Response Date Recorded In the last 10 days, have kathie u been in contact with someone who was confirmed or suspected to have Coronavirus/COVID-19? No / Unsure 08/06/2021 11:17 AM NURSE documented as of this encounter Plan of Treatment Upcoming Encounters Date Type Department Care Team (Late st Contact Info) Description 10/15/2024 8:40 AM CDT Office Visit [facility] Family & Internal Medicine - [address] [phone] Vipul Núñez DO [address] [place] [phone] 01/31/2025 11:45 AM CDT Office Visit [facility]-[address] [phone] Christopher Cain MD 3 [facility] [address] [place] [phone] documented as of this encounter Procedures Procedure Name Priority Date/Time Associated Diagnosis Comments BASIC METABOLIC PANEL Routine 03/02/2022 BASIC METABOLIC PANEL Routine 08/23/2021 documented in this encounter Results * (ABNORMAL) BASIC METABOLIC PANEL (03/02/2022) SODIUM S/P/B 139 POTASSIUM S/P/B 4.1 CO2 25 CHLORIDE S/P/B 104 GLUCOSE 201 mg/dL CALCIUM S/P/B 9.0 BUN 19 CREATININE S/P/B 0.86 0.7 - 1.3 EGFR NON-AFR. AMER. 93(A) <=90 03/02/2022 [facility] Final Result * (ABNORMAL) BASIC METABOLIC PANEL (08/23/2021) SODIUM S/P/B 143 POTASSIUM S/P/B 4.6 CO2 29 CHLORIDE S/P/B 107 GLUCOSE 162 mg/dL CALCIUM S/P/B 9.0 BUN 20 CREATININE S/P/B 0.88 0.7 - 1.3 EGFR AFR. AMER. 101(A) <=90 EGFR NON-AFR. AMER. 87 <=90 08/23/2021 [facility] Final Result documented in this encounter Visit Diagnoses Not on filedocumented in this encounter Additional Health Concerns Assessment Noted Time PHQ-9 Depression Total Score: 0 06/30/19 22 9:32 AM NURSE documented as of this encounter Care Teams Child Advocate Relationship Specialty Start Date End Date Vipul Núñez DO [address] [place] [phone] PCP - General FAMILY PRACTICE 06/14/18 Christopher Cain MD 3 [facility] [address] [place], [place] [phone] [employer] Operator CARDIOVASCULAR DISEASE 07/19/18 Ian Sandoval MD 3 [facility] [address] [place] [phone] COLON/RECTAL SURGERY 02/27/20 documented as of this encounter
[2024-10-12 09:09] LABS: Alanine Aminotransferase 27 U/L (6-50); Alkaline Phosphatase 70 U/L (38-126); Anion Gap 9 mmol/L (4-12); Aspartate Amino Transferase 25 U/L (17-59); Bilirubin,Total 0.6 mg/dL (0.2-1.3); Blood Urea Nitrogen 24 mg/dL (9-20); Calcium 8.6 mg/dL (8.4-10.2); Carbon Dioxide 23 mmol/L (22-30); Chloride 107 mmol/L (98-107); Estimated CRCL calculation 90 ml/min; Estimated Glomerular Filt Rate > 60; Glucose 230 mg/dL (65-110); Potassium 3.8 mmol/L (3.4-5.0); Sodium 139 mmol/L (137-145)
[2024-10-12 09:10] LABS: Magnesium 2.1 mg/dL (1.6-2.3)
[2024-10-12] MEDS: ASPIRIN 81 MG CHEWABLE TABLET 324 MG PO (10:56)
[2024-10-12] MEDS: ATORVASTATIN 20 MG TABLET PO (11:13)
--- NOTE | 2024-10-12 12:40 | P.HP_ITS ---
H&P: HPI History of Present Illness Date/Time: 10/12/24 14:00 Chief Complaint: Dizziness. Narrative: This is a very pleasant 74-year-old male with history of transient ischemic attack, coronary artery disease status post stent, hypertension, dyslipidemia, type 2 diabetes mellitus, and gastroesophageal reflux disease who presented to the emergency department via EMS with complaints of dizziness. He felt fine when he got up this morning and went to visit his daughter. Daughter thought the patient looked unwell and a bit confused when he came to the door however he tells me he was feeling just fine and never realized that anything was wrong. He had a bagel for breakfast and when he went to stand up he noticed that his gait was often that he was listing to the side. Apparently he told his daughter that he was feeling off balance and she called the ambulance. He does not remember the ambulance ride and seems to be confused about the events that transpired earlier today. says the patient has had a couple of similar episodes over the last year ?almost like he does not know what is going on with a glazed look on his face.? These episodes are transient and there has never been a loss of consciousness or witnessed seizure activity. At the time my evaluation he has no complaints and states he feels just fine. He denies current vertigo, visual changes, focal weakness, paresthesias, facial droop, difficulty speaking and swallowing, palpitations, sensations of racing heart, chest pain, shortness of breath, nausea, vomiting, diarrhea, and dysuria. Of note, was reportedly going in and out of atrial fibrillation according to EMS however he has been in sinus rhythm since arrival. In the ED: Vital signs were stable on arrival. Orthostatic vital signs were negative. CMP and CBC were pretty unremarkable with the only outliers being a BUN of 24 and a glucose of 230. EKG showed sinus rhythm without acute ST segment changes and small Q-waves in lead 3 and AVF. He was given aspirin 324 mg and was admitted to the telemetry floor in this setting for close monitoring and further evaluation. Review of Systems Review of Systems: 12 systems were reviewed and are negativ e except for as per HPI. [facility] Past Medical History Medical History Transient ischemic attack Gastroesophageal reflux disease Depression with anxiety Obstructive sleep apnea Type 2 diabetes mellitus Dyslipidemia Arthritis Hearing loss Vision loss Hypertension Coronary artery disease Surgical History Surgical History History of bilateral cataract extraction History of total left hip arthroplasty (2012) History of partial colectomy (2010) for diverticulitis History of cardiac catheterization History of coronary artery stent placement History of left hip replacement Family History Family History Other Cerebrovascular accident Malignant neoplasm of prostate Social History Social History Social History: Surrogate medical decision maker: Mica Roblero, spouse. Code status: Full code. Smoking status: Never smoker Alcohol intake: never Substance use: never Do You Feel Safe in your Home?: Yes Lack of Transportation: No Lack of Food: Never True Current Housing: I Have Housing Concerned About Future Housing: No Difficulty Paying Gas/Electric Bills: No Difficulty Paying for Meds: No Currently Unemployed: No Education: High School Diploma/GED Difficulty w/ Childcare or Family Care: No Living arrangements: with family Occupation/Education: retired Spiritual care concerns: No Meds Home Medications and Allergies Home Medications ?Medication ?Instructions ?Recorded ?Confirmed ?Type aspirin 81 mg tablet,delayed 81 mg PO DAILY 04/30/19 10/12/24 History release atorvastatin 20 mg tablet 20 mg PO QPM 04/30/19 10/12/24 History carvedilol 3.125 mg PO BID 04/30/19 10/12/24 History metformin 1,500 mg PO 0800 04/30/19 10/12/24 History zolpidem 10 mg PO QHS PRN insomnia 04/30/19 10/12/24 History empagliflozin 25 mg tablet 25 mg PO DAILY 10/12/24 10/12/24 History (Jardiance) ezetimibe 10 mg tablet 10 mg PO QPM 10/12/24 10/12/24 History furosemide 20 mg tablet 20 mg PO DAILY 10/12/24 10/12/24 History multivitamin (Daily Multi-Vitamin 1 tablet PO DAILY 10/12/24 10/12/24 History tablet) sacubitril 24 mg-valsartan 26 mg 1 tablet PO BID 10/12/24 10/12/24 History tablet (Entresto) Allergies Allergy/AdvReac Type Severity Reaction Status Date / Time No Known Allergies Allergy Verified 10/12/24 08:20 Vital Signs Vital Signs - 24 hr 10/12/24 08:11 10/12/24 08:13 10/12/24 11:14 Temperature 97.4 F L Pulse Rate 78 96 74 Respiratory Rate 12 18 Blood Pressure 132/76 117/72 Pulse Oximetry 98 97 Oxygen Delivery Room Air 10/12/24 11:15 10/12/24 11:17 10/12/24 11:19 Temperature Pulse Rate 68 68 72 Respiratory Rate Blood Pressure 119/70 123/73 116/81 Pulse Oximetry Oxygen Delivery Exam Narrative: General: Well-developed, nontoxic-appearing male sitting up in bed in no distress. Weight: 109.6 kg. BMI: 34.7. HEENT: PERRL, EOMI. Sclera anicteric. Oral mucosa moist. Oropharynx clear. Neck: Supple. No obvious carotid bruits. Respiratory: Lungs are clear to auscultation bilaterally. Cardiovascular: Regular rate and rhythm with S1-S2. The murmur at the left upper sternal border. Gastrointestinal: Abdomen is soft, nontender, and nondistended with positive bowel sounds. Skin: Warm and dry. No rash or lesions on limited exam. Extremities: No cyanosis, clubbing, or edema. Radial and pedal pulses intact. Neurological: Alert and oriented x4. Cranial nerves 2-12 are grossly intact. Speech is clear. No facial asymmetry. No pronator drift. 5/5 in the upper and lower extremities. Neurovascular intact. Normal [id number] and rapid alternating movements. Psychiatric: Pleasant and cooperative with normal mood and affect. Judgment and insight intact. H&P: Results Labs Labs: Short CBC 10/12/24 Range/Units 08:50 WBC 5.6 (4.5-10.0) K/mm3 Hgb 15.1 (14.0-18.0) g/dL Hct 46.8 (42.0-52.0) % Plt Count 190 (150-375) k/mm3 [facility] 10/12/24 08:50 Sodium 139 Potassium 3.8 Chloride 107 Carbon Dioxide 23 BUN 24 H Creatinine 0.77 Glucose 230 H Calcium 8.6 Liver Function 10/12/24 Range/Units 08:50 Total Bilirubin 0.6 (0.2-1.3) mg/dL AST 25 (17-59) U/L ALT 27 (6-50) U/L Alkaline Phosphatase 70 (38-126) U/L Albumin 4.0 (3.5-5.1) g/dL Imaging Head/Neck CTA 10/12/24 10:00 IMPRESSION: 1. 30% stenosis of the right carotid bulb relative to normal distal artery lumen diameter (NASCET criteria). 2. 0% stenosis of the left carotid bulb relative to normal distal artery lumen diameter. 3. Unremarkable cerebral CT angiogram with no hemodynamically significant stenosis, aneurysm or dissection. 4. Normal brain with no acute intracranial process or abnormally enhancing brain lesions. Assessment and Plan Assessment and plan (1) Transient neurological symptoms: Code(s): R29.818 - Other symptoms and signs involving the nervous system Status: Acute (2) Hypertension: Code(s): I10 - Essential (primary) hypertension Status: Acute (3) Dyslipidemia: Code(s): E78.5 - Hyperlipidemia, unspecified Status: Acute (4) Type 2 diabetes mellitus: Code(s): E11.9 - Type 2 diabetes mellitus without complications Status: Acute (5) Coronary artery disease: Code(s): I25.10 - Atherosclerotic heart disease of picayune coronary artery without angina pectoris Status: Acute (6) Obstructive sleep apnea: Code(s): G47.33 - Obstructive sleep apnea (adult) (pediatric) Status: Acute Plan The patient presented to the emergency department for evaluation of transient neurologic symptoms as detailed in HPI. Labs, imaging, EKG, and all reports were personally reviewed. Patient states he was unaware that he was acting strangely but daughter states that he seemed to be confused, at times seemed to stare off into space, and when he got up to stand he had difficulties walking. He also has some memory loss with regards to what happened earlier today. I wonder if he may be having partial seizures. History would be somewhat usual for a TIA or stroke. He will be monitored on telemetry overnight with q.4 neurologic checks. Given reports of possible atrial fibrillation per EMS, he should probably be discharged home on a 30 day event monitor. Echocardiogram is pending. Brain MRI and EEG also ordered. Neurology has been consulted and their input is appreciated. Blood pressures are stable and will be monitored. Initiate sliding scale insulin, Accu-Cheks, and hypoglycemic protocol. Check hemoglobin A1c. CPAP will be provided for the patient to use while hospitalized. His medications will be reviewed and resumed as appropriate. Quality VTE Prophylaxis VTE prophylaxis: mechanical ordered The patient has been admitted under observation status. Hospitalist [facility] Advance Care Plan I have confirmed that the patient's Advanced Care Plan is present, code status is documented, or surrogate decision maker is listed in patient medical record.: Yes Medication Reconciliation I have utilized all available resources to obtain, update and review the patients current medications (includes all prescriptions, OTC, herbals, cannabis, and nutritional supplements).: Yes
--- NOTE | 2024-10-12 12:46 | ADMGEN ---
This patient, Narciso Roblero, was admitted to 3 [facility] Surg Room 319-01. Patient/family oriented to hospital policies and general routines including ID bracelet, bed and alarms, visiting hours, pain management, procedures, bathroom and other care routines, personal items, smoking policy, room service/diet, and visiting hours. Information on how to activate the Rapid Response Team has been discussed. Patient/Family are encouraged to report perceived risks to care and to ask questions if they do not understand what they are told or what they should do.
[2024-10-12 16:24] LABS: Glucose Point of Care 131 mg/dl (65-105)
--- NOTE | 2024-10-12 16:34 | P.CONNEU_ITS ---
Assessment and Plan Assessment and plan (1) Type 2 diabetes mellitus: Code(s): E11.9 - Type 2 diabetes mellitus without complications Status: Acute (2) Obstructive sleep apnea: Code(s): G47.33 - Obstructive sleep apnea (adult) (pediatric) Status: Acute Plan The patient should be considered for prolonged cardiac monitoring and should be looking to the episodes of atrial fibrillation and a cardiac consultation. According to his he already has a anthropology department chair and she is going to talk to them. In the meanwhile should be treated with antiplatelets and statins. I mentioned to his about possibility of partial complex seizures but she is convinced that it is not a seizure but a TIA. Of course is difficult to prove otherwise. CT angiogram head and neck did not show any significant pathology. Include CT scan of the brain which also did not show any significant abnormal findings. There is 30% narrowing of the right carotid bulb and 0% the left carotid bulb. Currently the patient is on aspirin 81 mg a day and atorvastatin 20 mg a day. In [place] to order a lipid profile. Also is known to have obstructive sleep apnea syndrome and is on BiPAP. Risk factor management is the zuñiga to prevention of transient ischemic attacks. We shall follow up the results of MRI which is still pending. Consult date: 10/12/24 HPI: Narciso Roblero is a 74 year old male who presented to the hospital with an extra episode where he drove to his daughter and then it daughter cook take a bagel for him and while he was eating he does not remember what happened but he does not remember eating the basal and was walking around in the living room. He appeared confused. Other description is lightheadedness or dizziness or wobbly gait. Was found to have atrial fibrillation but later on he had regular sinus rhythm. He was brought to the hospital by EMS. His blood glucose in the ER was 222 vital signs including blood pressure within normal range. He was thought to have had a transient ischemic attack. His states that he has had transient ischemic attack on of since 2012. Initially he has had a spell where he could see only half of his face and she was told that he was having a transient ischemic attack. He has had several spells which were thought to TIAs. Review of Systems 2 Review of Systems: All systems reviewed & are unremarkable except as noted in HPI and below [facility] Past Medical History Medical History (Updated 10/12/24 @ 16:50 by Shanta Winston MD) Transient ischemic attack Gastroesophageal reflux disease Depression with anxiety Obstructive sleep apnea Type 2 diabetes mellitus Dyslipidemia Arthritis Anxiety Hearing loss Vision loss Hypertension Coronary artery disease Surgical History Surgical History History of bilateral cataract extraction History of total left hip arthroplasty (2012) History of partial colectomy (2010) for diverticulitis History of cardiac catheterization History of coronary artery stent placement History of left hip replacement Family History Family History Other Cerebrovascular accident Malignant neoplasm of prostate Social History Social History Social History: Surrogate medical decision maker: Mica Roblero, spouse. Code status: Full code. Smoking status: Never smoker Alcohol intake: never Substance use: never Do You Feel Safe in your Home?: Yes Lack of Transportation: No Lack of Food: Never True Current Housing: I Have Housing Concerned About Future Housing: No Difficulty Paying Gas/Electric Bills: No Difficulty Paying for Meds: No Currently Unemployed: No Education: High School Diploma/GED Difficulty w/ Childcare or Family Care: No Living arrangements: with family Occupation/Education: retired Spiritual care concerns: No Meds Home Medications and Allergies Home Medications ?Medication ?Instructions ?Recorded ?Confirmed ?Type aspirin 81 mg tablet,delayed 81 mg PO DAILY 04/30/19 10/12/24 History release atorvastatin 20 mg tablet 20 mg PO QPM 04/30/19 10/12/24 History carvedilol 3.125 mg PO BID 04/30/19 10/12/24 History metformin 1,500 mg PO 0800 04/30/19 10/12/24 History zolpidem 10 mg PO QHS PRN insomnia 04/30/19 10/12/24 History empagliflozin 25 mg tablet 25 mg PO DAILY 10/12/24 10/12/24 History (Jardiance) ezetimibe 10 mg tablet 10 mg PO QPM 10/12/24 10/12/24 History furosemide 20 mg tablet 20 mg PO DAILY 10/12/24 10/12/24 History multivitamin (Daily Multi-Vitamin 1 tablet PO DAILY 10/12/24 10/12/24 History tablet) sacubitril 24 mg-valsartan 26 mg 1 tablet PO BID 10/12/24 10/12/24 History tablet (Entresto) Allergies Allergy/AdvReac Type Severity Reaction Status Date / Time No Known Allergies Allergy Verified 10/12/24 08:20 Vital Signs Vital Signs - 24 hr 10/12/24 08:11 10/12/24 08:13 10/12/24 11:14 Temperature 97.4 F L Pulse Rate 78 96 74 Respiratory Rate 12 18 Blood Pressure 132/76 117/72 Pulse Oximetry 98 97 Oxygen Delivery Room Air 10/12/24 11:15 10/12/24 11:17 10/12/24 11:19 Temperature Pulse Rate 68 68 72 Respiratory Rate Blood Pressure 119/70 123/73 116/81 Pulse Oximetry Oxygen Delivery 10/12/24 13:00 10/12/24 13:37 Temperature 97.8 F Pulse Rate 66 83 Respiratory Rate 16 Blood Pressure 136/76 Pulse Oximetry 97 Oxygen Delivery Exam 2 Const: General: cooperative, well developed and alert O rientation/consciousness: patient oriented x3 HENMT: Head: atraumatic Mouth: Yes oropharynx normal Eyes: Alignment and Position: position normal EOM: EOMs intact bilaterally Other: Right pupil is larger than the left side. He told me that he had some problem going on with the right retina he Neck: Neck: supple Resp: Effort & Inspection: normal respiratory effort Cardio: Rhythm: regular rhythm Skin: General skin exam: normal color Neuro: General: patient oriented x3 Cranial nerves: Yes CN's II-XII intact bilaterally ( right pupil larger than left), Yes facial sensation intact/muscles of mastication intact, Yes Equal, round and reactive pupils present, Yes facial symmetry and Yes Midline tongue present Cognition (Neuro): normal cognition Speech: normal speech Motor exam (neuro): 5/5 motor strength present throughout Sensory Exam: normal sensation C oordination: [id number] test normal and Normal rapid alternating movements of the distal upper extremity present (Neuro) Results Labs 10/12/24 08:50 10/12/24 08:50 Labs: Short CBC 10/12/24 Range/Units 08:50 WBC 5.6 (4.5-10.0) K/mm3 Hgb 15.1 (14.0-18.0) g/dL Hct 46.8 (42.0-52.0) % Plt Count 190 (150-375) k/mm3 BMP 10/12/24 08:50 Sodium 139 Potassium 3.8 Chloride 107 Carbon Dioxide 23 BUN 24 H Creatinine 0.77 Glucose 230 H Calcium 8.6 Liver Function 10/12/24 Range/Units 08:50 Total Bilirubin 0.6 (0.2-1.3) mg/dL AST 25 (17-59) U/L ALT 27 (6-50) U/L Alkaline Phosphatase 70 (38-126) U/L Albumin 4.0 (3.5-5.1) g/dL
--- NOTE | 2024-10-12 18:22 | PC.NURSE ---
On 10/12/24, the PLANT ELECTRICIAN, Johana Hartley, provided care and completed [employer] documentation on this patient. I have reviewed the PLANT ELECTRICIAN's documentation and agree with the findings.
[2024-10-12] MEDS: SACUBITRIL/VALSARTAN 24-26 MG TABLET 1 TAB PO (21:25)
[2024-10-12] MEDS: EZETIMIBE 10 MG TABLET PO (21:25)
[2024-10-12] MEDS: carvediloL 3.125 MG TABLET PO (21:26)
[2024-10-12 21:30] LABS: Glucose Point of Care 163 mg/dl (65-105)
[2024-10-12] MEDS: ACETAMINOPHEN 325 MG TABLET 650 MG PO (22:54)
[2024-10-13] VITALS (11 sets, daily range): BP systolic 112–130; BP diastolic 68–83; PULSE 58–80; RESP 18–20; TEMP 36.1–37; O2SAT 95–96
[2024-10-13 06:20] LABS: Anion Gap 7 mmol/L (4-12); Blood Urea Nitrogen 18 mg/dL (9-20); Calcium 8.4 mg/dL (8.4-10.2); Carbon Dioxide 25 mmol/L (22-30); Chloride 106 mmol/L (98-107); Cholesterol 119 mg/dL (0-200); Estimated CRCL calculation 106 ml/min; Estimated Glomerular Filt Rate > 60; Glucose 138 mg/dL (65-110); HDL Direct 35 mg/dL; Magnesium 2.2 mg/dL (1.6-2.3); Potassium 3.7 mmol/L (3.4-5.0); Sodium 138 mmol/L (137-145); Triglycerides 89 mg/dL (<150)
[2024-10-13 06:31] LABS: LDL Cholesterol Direct 58 mg/dL
--- NOTE | 2024-10-13 07:32 | P.PNIM_ITS ---
Progress Note: A&P Assessment and Plan (1) Transient neurological symptoms: Code(s): R29.818 - Other symptoms and signs involving the nervous system Status: Acute Assessment and Plan: * History of multiple TIAs in the past, this episode however was longer than usual * Head/Neck CTA: 30% stenosis of the right carotid bulb, 0% stenosis of the left carotid bulb * no hemodynamically significant stenosis, aneurysm or dissection * Normal brain with no acute intracranial process or abnormally enhancing brain lesions * Brain MRI: No acute intracranial process. Few scattered T2 and FLAIR hyperintense signal areas suggestive of deep white matter ischemic changes.No enhancing lesions seen. * EKG 10/12: Sinus rhythm, low QRS voltage precordial leads, QRS 13, QTc 453, [place] 188 * Aspirin 81mg daily, atorvastatin 20mg daily * Neurology consulted, appreciate recommendations * POC glucose 127 * Benign neurological exam * Lipid panel wnl * Vitamin-D and vitamin B12 pending (2) Atrial fibrillation: Code(s): I48.91 - Unspecified atrial fibrillation Status: Acute Assessment and Plan: * Had run of Afib in ambulance to hospital, no afib seen on EKG or telemtrity while in hospital * Consult Cardiology for further management pending echo, appreciate assistance and recommendations * Diltiazem drip, titrate as needed per protocol * Echocardiogram ordered * Cardiac event monitor on discharge (3) Hypertension: Code(s): I10 - Essential (primary) hypertension Status: Acute Assessment and Plan: * Chronic, stable * Entresto (4) Dyslipidemia: Code(s): E78.5 - Hyperlipidemia, unspecified Status: Acute Assessment and Plan: * Atorvastatin 20mg (5) Type 2 diabetes mellitus: Code(s): E11.9 - Type 2 diabetes mellitus without complications Status: Acute Assessment and Plan: - hypoglycemia protocol - POC blood glucose ACHS - home medication - Metformin 1,500mg - correct regimen ordered - low dose TIDWM and HS - A1C 7.0 (6) Coronary artery disease: Code(s): I25.10 - Atherosclerotic heart disease of [place] coronary artery without angina pectoris Status: Acute Assessment and Plan: * Ezetimibe 10mg (7) Obstructive sleep apnea: Code(s): G47.33 - Obstructive sleep apnea (adult) (pediatric) Status: Acute Assessment and Plan: * CPAP provided Time Spent With Patient Time: 15-25 Subjective Date/time seen: 10/13/24 07:32 Interval history: 74-year-old male with history of transient ischemic attack, coronary artery disease status post stent, hypertension, dyslipidemia, type 2 diabetes mellitus, and gastroesophageal reflux disease who presented to the emergency department via EMS with complaints of dizziness. 10/13/2024 Patient sitting in chair at time of examination. At this time and denies any complaints whatsoever, shortness of breath, chest pain, dizziness, headache, nausea/vomiting, abdominal pain, or urinary/bowel complaints. States that he has not had any issues with dizziness or memory since his admission yesterday. He has been able to ambulate independently throughout the room today. Neurology consulted. MRI unremarkable. Plan for EEG and echocardiogram today or tomorrow. Review of Systems Review of Systems: 12 systems were reviewed and are negativ e except for as per HPI. Exam Narrative: General: Well-developed, nontoxic-appearing male sitting up in bed in no distress. Weight: 109.6 kg. BMI: 34.7. HEENT: PERRL, EOMI. Sclera anicteric. Oral mucosa moist. Oropharynx clear. Neck: Supple. No obvious carotid bruits. Respiratory: Lungs are clear to auscultation bilaterally. Cardiovascular: Regular rate and rhythm with S1-S2. The murmur at the left upper sternal border. Gastrointestinal: Abdomen is soft, nontender, and nondistended with positive bowel sounds. Skin: Warm and dry. No rash or lesions on limited exam. Extremities: No cyanosis, clubbing, or edema. Radial and pedal pulses intact. Neurological: Alert and oriented x4. Cranial nerves 2-12 are grossly intact. Speech is clear. No facial asymmetry. No pronator drift. 5/5 in the upper and lower extremities. Neurovascular intact. Normal [id number]-cv-[id number] and rapid alternating movements. Psychiatric: Pleasant and cooperative with normal mood and affect. Judgment and insight intact. Objective Data Vital Signs Vital Signs: Vital Signs - 24 hr 10/12/24 08:11 10/12/24 08:13 10/12/24 11:14 Temperature 97.4 F L Pulse Rate 78 96 74 Respiratory Rate 12 18 Blood Pressure 132/76 117/72 Pulse Oximetry 98 97 Oxygen Delivery Room Air 10/12/24 11:15 10/12/24 11:17 10/12/24 11:19 Temperature Pulse Rate 68 68 72 Respiratory Rate Blood Pressure 119/70 123/73 116/81 Pulse Oximetry Oxygen Delivery 10/12/24 13:00 10/12/24 13:37 10/12/24 16:00 Temperature 97.8 F Pulse Rate 66 83 72 Respiratory Rate 16 Blood Pressure 136/76 Pulse Oximetry 97 Oxygen Delivery 10/12/24 20:00 10/12/24 20:00 10/12/24 21:01 Temperature 97.9 F Pulse Rate 72 65 Respiratory Rate 18 Blood Pressure 121/74 Pulse Oximetry 94 Oxygen Delivery Room Air 10/12/24 21:26 10/12/24 23:10 10/13/24 00:00 Temperature Pulse Rate 66 60 Respiratory Rate Blood Pressure Pulse Oximetry Oxygen Delivery CPAP 10/13/24 04:00 10/13/24 06:00 Temperature 97.6 F Pulse Rate 58 L 60 Respiratory Rate 18 Blood Pressure 125/72 Pulse Oximetry 95 Oxygen Delivery Intake/Output Intake/Output: Intake & Output 10/10/24 10/11/24 10/12/24 10/13/24 23:59 23:59 23:59 23:59 Intake Total 480 600 Balance 480 600 Meds/Results Medications: Active Medications Generic Name Dose Route Start Last Admin Trade Name Freq PRN Reason Stop Dose Admin Acetaminophen 650 mg 10/12/24 20:50 10/12/24 22:54 Acetaminophen 325 Mg Tablet PO 650 mg Q6H PRN Administration Mild Pain (1-3) or Fever Aspirin 81 mg 10/13/24 09:00 Aspirin 81 Mg Enteric Tablet PO DAILY TRAVIS Atorvastatin Calcium 20 mg 10/12/24 11:00 10/12/24 11:13 Atorvastatin 20 Mg Tablet PO 20 mg DAILY TRAVIS Administration Carvedilol 3.125 mg 10/12/24 21:00 10/12/24 21:26 Carvedilol 3.125 Mg Tablet PO 3.125 mg Q12HR [facility]VIS Administration Dextrose 12.5 gm 10/12/24 20:50 Dextrose 50% 25 Gm/50 Ml Syringe IV PUSH PRN PRN Hypoglycemia Protocol Ezetimibe 10 mg 10/12/24 21:00 10/12/24 21:25 Ezetimibe 10 Mg Tablet PO 10 mg QPM TRAVIS Administration Empagliflozin 25 mg 10/13/24 09:00 Empagliflozin 25 Mg Tablet PO DAILY TRAVIS Furosemide 20 mg 10/13/24 09:00 Furosemide 20 Mg Tablet PO DAILY TRAVIS Glucagon 1 mg 10/12/24 20:50 Glucagon For Inj 1 Mg Vial IM PRN PRN Hypoglycemia Protocol Glucose 15 gm 10/12/24 20:50 Glucose Oral Gel 15 Gm Of Glucse In 37.5 Gm Tube PO PRN PRN Hypoglycemia Protocol Dextrose 1,000 mls @ 100 mls/hr 10/12/24 20:50 Dextrose 5% 1,000 Ml IVPB PRN PRN Hypoglycemia Protocol Insulin Aspart 2 - 5 units 10/13/24 08:00 Insulin Aspart (*Bkc) 100 Units/Ml SUB-Q TIDWM [facility] Protocol Insulin Aspart 1 - 2 units 10/12/24 21:00 10/12/24 21:26 Insulin Aspart (*Bkc) 100 Units/Ml SUB-Q Not Given HS [facility] Protocol Multivitamins Therapeutic 1 tablet 10/13/24 09:00 Multivitamins Therapeutic Tab (*Bkc) PO DAILY [facility] Perflutren Lipid Microsphere 0 ml 10/12/24 20:50 Perflutren Lipid Microspheres 1.5 Ml Vial Diluted To 10 Ml Total Volume IV PUSH 10/15/24 20:51 ONCE PRN adequate visualization Protocol Sacubitril/Valsartan 1 tab 10/12/24 21:00 10/12/24 21:25 Sacubitril/Valsartan 24-26 Mg Tablet PO 1 tab Q12HR [facility] Administration Zolpidem Tartrate 10 mg 10/12/24 20:57 Zolpidem Tartrate (*Crx) 5 Mg Tablet PO QHS PRN insomnia Radiology Results: ITS Impressions Head/Neck CTA 10/12/24 10:00 IMPRESSION: 1. 30% stenosis of the right carotid bulb relative to normal distal artery lumen diameter (NASCET criteria). 2. 0% stenosis of the left carotid bulb relative to normal distal artery lumen diameter. 3. Unremarkable cerebral CT angiogram with no hemodynamically significant stenosis, aneurysm or dissection. 4. Normal brain with no acute intracranial process or abnormally enhancing brain lesions. Brain MRI 10/12/24 17:03 IMPRESSION: No acute intracranial process. Few scattered T2 and FLAIR hyperintense signal areas suggestive of deep white matter ischemic changes.. No enhancing lesions seen. Labs Labs: Laboratory Results - last 24 hr 10/12/24 10/12/24 10/12/24 08:20 08:50 16:19 WBC 5.6 RBC 4.86 Hgb 15.1 Hct 46.8 MCV 96.3 MCH 31.1 MCHC 32.3 RDW 13.8 Plt Count 190 MPV 10.0 Immature Gran % (Auto) 0.4 Neut % (Auto) 69.6 Lymph % (Auto) 20.0 [place] % (Auto) 8.2 Eos % (Auto) 1.1 Baso % (Auto) 0.7 Lymph # (Auto) 1.12 [place] # (Auto) 0.5 Eos # (Auto) 0.1 Baso # (Auto) 0.0 Abs Immat Gran (auto) 0.02 Absolute Neuts (auto) 3.9 Absolute Nucleated RBC 0.000 Nucleated RBC % 0.0 Sodium 139 Potassium 3.8 Chloride 107 Carbon Dioxide 23 Anion Gap 9 BUN 24 H Creatinine 0.77 Estim Creat Clear Calc 90 Estimated GFR > 60 Glucose 230 H POC Capillary Glucose 222 H 131 H Hemoglobin A1c 7.0 H Calcium 8.6 Magnesium 2.1 Total Bilirubin 0.6 AST 25 ALT 27 Alkaline Phosphatase 70 Total Protein 7.0 Albumin 4.0 Triglycerides Cholesterol LDL Cholesterol Direct HDL Direct TSH (Reflex) 1.790 10/12/24 10/13/24 21:24 05:36 WBC RBC Hgb Hct MCV MCH MCHC RDW Plt Count MPV Immature Gran % (Auto) Neut % (Auto) Lymph % (Auto) [place] % (Auto) Eos % (Auto) Baso % (Auto) Lymph # (Auto) [place] # (Auto) Eos # (Auto) Baso # (Auto) Abs Immat Gran (auto) Absolute Neuts (auto) Absolute Nucleated RBC Nucleated RBC % Sodium 138 Potassium 3.7 Chloride 106 Carbon Dioxide 25 Anion Gap 7 BUN 18 Creatinine 0.66 L Estim Creat Clear Calc 106 Estimated GFR > 60 Glucose 138 H POC Capillary Glucose 163 H Hemoglobin A1c Calcium 8.4 Magnesium 2.2 Total Bilirubin AST ALT Alkaline Phosphatase Total Protein Albumin Triglycerides 89 Cholesterol 119 LDL Cholesterol Direct 58 HDL Direct 35 TSH (Reflex) Quality VTE Prophylaxis VTE prophylaxis: mechanical ordered
[2024-10-13 07:46] LABS: Basophils Percent Auto 0.7 % (0.2-1.2); Eosinophils Absolute Auto 0.1 K/mm3 (0-0.3); Eosinophils Percent Auto 1.8 % (0-4.4); Hematocrit 46.3 % (42.0-52.0); Hemoglobin 14.9 g/dL (14.0-18.0); Immature Granulocyte Absolute 0.01 K/mm3 (0.00-0.031); Immature Granulocyte Percent A 0.2 % (0-0.5); Lymphocytes Absolute Auto 1.34 K/mm3 (0.9-3.2); Lymphocytes Percent Auto 22.3 % (18.3-44.2); Mean Corpuscular HGB Conc 32.2 g/dl (32-36); Mean Corpuscular Hemoglobin 31.4 pg (26-34); Mean Corpuscular Volume 97.5 fl (80-100); Mean Platelet Volume 10.8 fl (7.4-10.4); Monocytes Absolute Auto 0.8 K/mm3 (0.1-0.6); Monocytes Percent Auto 12.5 % (2.6-8.5); Neutrophils Absolute Auto 3.8 K/mm3 (1.3-6.7); Neutrophils Percent Auto 62.5 % (45.5-73.1); Platelet Count Result 185 k/mm3 (150-375); Red Blood Count 4.75 M/mm3 (4.6-6.20); Red Cell Distribution Width 13.7 % (11.5-14.5)
[2024-10-13 07:46] LABS: Glucose Point of Care 137 mg/dl (65-105)
[2024-10-13] MEDS: carvediloL 3.125 MG TABLET PO ×2 (08:37→21:05)
[2024-10-13] MEDS: FUROSEMIDE 20 MG TABLET PO (08:37)
[2024-10-13] MEDS: ASPIRIN 81 MG ENTERIC TABLET PO (08:38)
[2024-10-13] MEDS: SACUBITRIL/VALSARTAN 24-26 MG TABLET 1 TAB PO ×2 (08:38→21:04)
[2024-10-13] MEDS: EMPAGLIFLOZIN 25 MG TABLET PO (08:38)
[2024-10-13] MEDS: ATORVASTATIN 20 MG TABLET PO (08:38)
[2024-10-13] MEDS: MULTIVITAMINS THERAPEUTIC TAB (*BKC) 1 TABLET PO (08:38)
[2024-10-13 11:50] LABS: Glucose Point of Care 127 mg/dl (65-105)
[2024-10-13 14:39] LABS: Vitamin D 25 Hydroxy 30.2 ng/mL
[2024-10-13 16:29] LABS: Glucose Point of Care 127 mg/dl (65-105)
[2024-10-13 16:29] LABS: Glucose Point of Care 135 mg/dl (65-105)
[2024-10-13] MEDS: EZETIMIBE 10 MG TABLET PO (17:37)
[2024-10-13 21:08] LABS: Glucose Point of Care 139 mg/dl (65-105)
[2024-10-14] VITALS (12 sets, daily range): BP systolic 114–129; BP diastolic 65–81; PULSE 57–142; RESP 16–18; TEMP 35.8–37; O2SAT 93–95
--- NOTE | 2024-10-14 07:13 | P.PNIM_ITS ---
Progress Note: A&P Assessment and Plan (1) Transient neurological symptoms: Code(s): R29.818 - Other symptoms and signs involving the nervous system Status: Acute Assessment and Plan: * History of multiple TIAs in the past, this episode however was longer than usual * Head/Neck CTA: 30% stenosis of the right carotid bulb, 0% stenosis of the left carotid bulb * no hemodynamically significant stenosis, aneurysm or dissection * Normal brain with no acute intracranial process or abnormally enhancing brain lesions * Brain MRI: No acute intracranial process. Few scattered T2 and FLAIR hyperintense signal areas suggestive of deep white matter ischemic changes.No enhancing lesions seen. * EKG 10/12: Sinus rhythm, low QRS voltage precordial leads, QRS 13, QTc 453, [place] 188 * Aspirin 81mg daily, atorvastatin 20mg daily * Neurology consulted, appreciate recommendations * POC glucose 127 * Benign neurological exam * Lipid panel, Vitamin-D and vitamin B12 wnl * EEG and Echo pending (2) Atrial fibrillation: Code(s): I48.91 - Unspecified atrial fibrillation Status: Acute Assessment and Plan: * Had run of Afib in ambulance to hospital, no afib seen on EKG or telemtrity while in hospital * Hold on Cardiology consul for now * Diltiazem drip, titrate as needed per protocol * Echocardiogram pending * Cardiac event monitor on discharge (3) Nonsustained ventricular tachycardia: Code(s): I47.29 - Other ventricular tachycardia Status: Acute Assessment and Plan: * Had 10s run of V-tach on a.m. of 10/14 * No associated symptoms, including chest pain, dizziness, heart flutters, or shortness of breath * Continue to monitor on tele * Will consider cardiac consult and repeat EKG if further V-tach is noticed on tele (4) Hypertension: Code(s): I10 - Essential (primary) hypertension Status: Acute Assessment and Plan: * Chronic, stable * Entresto (5) Dyslipidemia: Code(s): E78.5 - Hyperlipidemia, unspecified Status: Acute Assessment and Plan: * Atorvastatin 20mg (6) Type 2 diabetes mellitus: Code(s): E11.9 - Type 2 diabetes mellitus without complications Status: Acute Assessment and Plan: - hypoglycemia protocol - POC blood glucose ACHS - home medication - Metformin 1,500mg - correct regimen ordered - low dose TIDWM and HS - A1C 7.0 (7) Coronary artery disease: Code(s): I25.10 - Atherosclerotic heart disease of [place] coronary artery without angina pectoris Status: Acute Assessment and Plan: * Ezetimibe 10mg (8) Obstructive sleep apnea: Code(s): G47.33 - Obstructive sleep apnea (adult) (pediatric) Status: Acute Assessment and Plan: * CPAP provided Subjective Date/time seen: 10/14/24 07:13 Interval history: 74-year-old male with history of transient ischemic attack, coronary artery disease status post stent, hypertension, dyslipidemia, type 2 diabetes mellitus, and gastroesophageal reflux disease who presented to the emergency department via EMS with complaints of dizziness. 10/14/2024 Patient sitting in chair at time of examination. No complaints as of this morning. Nursing staff reported around the V-tach for approximately 10 seconds. At that time, patient was talking with his and had no associated symptoms, denied any chest pain, shortness a breath, dizziness, heart flutters. EEG and echocardiogram to be done today. Review of Systems Review of Systems: 12 systems were reviewed and are negativ e except for as per HPI. Exam Narrative: General: Well-developed, nontoxic-appearing male sitting up in bed in no distress. Weight: 109.6 kg. BMI: 34.7. HEENT: PERRL, EOMI. Sclera anicteric. Oral mucosa moist. Oropharynx clear. Neck: Supple. No obvious carotid bruits. Respiratory: Lungs are clear to auscultation bilaterally. Cardiovascular: Regular rate and rhythm with S1-S2. The murmur at the left upper sternal border. Gastrointestinal: Abdomen is soft, nontender, and nondistended with positive bowel sounds. Skin: Warm and dry. No rash or lesions on limited exam. Extremities: No cyanosis, clubbing, or edema. Radial and pedal pulses intact. Neurological: Alert and oriented x4. Cranial nerves 2-12 are grossly intact. Speech is clear. No facial asymmetry. No pronator drift. 5/5 in the upper and lower extremities. Neurovascular intact. Normal [id number]-ax-[id number] and rapid alternating movements. Psychiatric: Pleasant and cooperative with normal mood and affect. Judgment a nd insight intact. Objective Data Vital Signs Vital Signs: Vital Signs - 24 hr 10/13/24 08:00 10/13/24 08:00 10/13/24 08:37 Temperature Pulse Rate 80 62 Respiratory Rate Blood Pressure Pulse Oximetry Oxygen Delivery Room Air 10/13/24 12:00 10/13/24 14:00 10/13/24 16:00 Temperature 96.9 F L Pulse Rate 66 71 67 Respiratory Rate 20 Blood Pressure 112/68 Pulse Oximetry 95 Oxygen Delivery 10/13/24 20:00 10/13/24 20:00 10/13/24 21:05 Temperature Pulse Rate 73 72 Respiratory Rate Blood Pressure Pulse Oximetry Oxygen Delivery Room Air 10/13/24 21:45 10/13/24 22:33 10/14/24 00:00 Temperature 98.6 F Pulse Rate 77 65 Respiratory Rate 18 Blood Pressure 130/83 Pulse Oximetry 96 Oxygen Delivery CPAP 10/14/24 04:00 10/14/24 06:00 Temperature 98.6 F Pulse Rate 57 L 74 Respiratory Rate 18 Blood Pressure 129/81 Pulse Oximetry 95 Oxygen Delivery Intake/Output Intake/Output: Intake & Output 10/11/24 10/12/24 10/13/24 10/14/24 23:59 23:59 23:59 23:59 Intake Total 480 1340 200 Balance 480 1340 200 Meds/Results Medications: Active Medications Generic Name Dose Route Start Last Admin Trade Name Freq PRN Reason Stop Dose Admin Acetaminophen 650 mg 10/12/24 20:50 10/12/24 22:54 Acetaminophen 325 Mg Tablet PO 650 mg Q6H PRN Administration Mild Pain (1-3) or Fever Aspirin 81 mg 10/13/24 09:00 10/13/24 08:38 Aspirin 81 Mg Enteric Tablet PO 81 mg DAILY TRAVIS Administration Atorvastatin Calcium 20 mg 10/12/24 11:00 10/13/24 08:38 Atorvastatin 20 Mg Tablet PO 20 mg DAILY TRAVIS Administration Carvedilol 3.125 mg 10/12/24 21:00 10/13/24 21:05 Carvedilol 3.125 Mg Tablet PO 3.125 mg Q12HR TRAVIS Administration Dextrose 12.5 gm 10/12/24 20:50 Dextrose 50% 25 Gm/50 Ml Syringe IV PUSH PRN PRN Hypoglycemia Protocol Ezetimibe 10 mg 10/12/24 21:00 10/13/24 17:37 Ezetimibe 10 Mg Tablet PO 10 mg QPM TRAVIS Administration Empagliflozin 25 mg 10/13/24 09:00 10/13/24 08:38 Empagliflozin 25 Mg Tablet PO 25 mg DAILY TRAVIS Administration Furosemide 20 mg 10/13/24 09:00 10/13/24 08:37 Furosemide 20 Mg Tablet PO 20 mg DAILY TRA[facility] Administration Glucagon 1 mg 10/12/24 20:50 Glucagon For Inj 1 Mg Vial IM PRN PRN Hypoglycemia Protocol Glucose 15 gm 10/12/24 20:50 Glucose Oral Gel 15 Gm Of Glucse In 37.5 Gm Tube PO PRN PRN Hypoglycemia Protocol Dextrose 1,000 mls @ 100 mls/hr 10/12/24 20:50 Dextrose 5% 1,000 Ml IVPB PRN PRN Hypoglycemia Protocol Insulin Aspart 2 - 5 units 10/13/24 08:00 10/13/24 16:41 Insulin Aspart (*Bkc) 100 Units/Ml SUB-Q Not Given TIDWM [facility] Protocol Insulin Aspart 1 - 2 units 10/12/24 21:00 10/13/24 22:43 Insulin Aspart (*Bkc) 100 Units/Ml SUB-Q Not Given HS [facility] Protocol Multivitamins Therapeutic 1 tablet 10/13/24 09:00 10/13/24 08:38 Multivitamins Therapeutic Tab (*Bkc) PO 1 tablet DAILY [facility] Administration Perflutren Lipid Microsphere 0 ml 10/12/24 20:50 Perflutren Lipid Microspheres 1.5 Ml Vial Diluted To 10 Ml Total Volume IV PUSH 10/15/24 20:51 ONCE PRN adequate visualization Protocol Sacubitril/Valsartan 1 tab 10/12/24 21:00 10/13/24 21:04 Sacubitril/Valsartan 24-26 Mg Tablet PO 1 tab Q12HR TRAVIS Administration Zolpidem Tartrate 10 mg 10/12/24 20:57 Zolpidem Tartrate (*Crx) 5 Mg Tablet PO QHS PRN insomnia Radiology Results: ITS Impressions Head/Neck CTA 10/12/24 10:00 IMPRESSION: 1. 30% stenosis of the right carotid bulb relative to normal distal artery lumen diameter (NASCET criteria). 2. 0% stenosis of the left carotid bulb relative to normal distal artery lumen diameter. 3. Unremarkable cerebral CT angiogram with no hemodynamically significant stenosis, aneurysm or dissection. 4. Normal brain with no acute intracranial process or abnormally enhancing brain lesions. Brain MRI 10/12/24 17:03 IMPRESSION: No acute intracranial process. Few scattered T2 and FLAIR hyperintense signal areas suggestive of deep white matter ischemic changes.. No enhancing lesions seen. Labs Labs: Laboratory Results - last 24 hr 10/13/24 10/13/24 10/13/24 05:36 07:36 11:36 WBC 6.0 RBC 4.75 Hgb 14.9 Hct 46.3 MCV 97.5 MCH 31.4 MCHC 32.2 RDW 13.7 Plt Count 185 MPV 10.8 H Immature Gran % (Auto) 0.2 Neut % (Auto) 62.5 Lymph % (Auto) 22.3 [place] % (Auto) 12.5 H Eos % (Auto) 1.8 Baso % (Auto) 0.7 Lymph # (Auto) 1.34 [place] # (Auto) 0.8 H Eos # (Auto) 0.1 Baso # (Auto) 0.0 Abs Immat Gran (auto) 0.01 Absolute Neuts (auto) 3.8 Absolute Nucleated RBC 0.000 Nucleated RBC % 0.0 POC Capillary Glucose 137 H 127 H Vitamin B12 279.0 Vitamin D 25-Hydroxy 30.2 10/13/24 10/13/24 10/13/24 15:09 16:27 20:52 WBC RBC Hgb Hct MCV MCH MCHC RDW Plt Count MPV Immature Gran % (Auto) Neut % (Auto) Lymph % (Auto) [place] % (Auto) Eos % (Auto) Baso % (Auto) Lymph # (Auto) [place] # (Auto) Eos # (Auto) Baso # (Auto) Abs Immat Gran (auto) Absolute Neuts (auto) Absolute Nucleated RBC Nucleated RBC % POC Capillary Glucose 135 H 127 H 139 H Vitamin B12 Vitamin D 25-Hydroxy Quality VTE Prophylaxis VTE prophylaxis: mechanical ordered
[2024-10-14 07:39] LABS: Basophils Percent Auto 0.6 % (0.2-1.2); Eosinophils Absolute Auto 0.1 K/mm3 (0-0.3); Eosinophils Percent Auto 1.8 % (0-4.4); Hematocrit 46.6 % (42.0-52.0); Immature Granulocyte Absolute 0.02 K/mm3 (0.00-0.031); Immature Granulocyte Percent A 0.3 % (0-0.5); Lymphocytes Absolute Auto 1.54 K/mm3 (0.9-3.2); Lymphocytes Percent Auto 23.6 % (18.3-44.2); Mean Corpuscular HGB Conc 32.2 g/dl (32-36); Mean Corpuscular Hemoglobin 31.3 pg (26-34); Mean Corpuscular Volume 97.1 fl (80-100); Monocytes Absolute Auto 0.7 K/mm3 (0.1-0.6); Monocytes Percent Auto 10.3 % (2.6-8.5); Neutrophils Absolute Auto 4.1 K/mm3 (1.3-6.7); Neutrophils Percent Auto 63.4 % (45.5-73.1); Platelet Count Result 195 k/mm3 (150-375); Red Cell Distribution Width 13.7 % (11.5-14.5); White Blood Count 6.5 K/mm3 (4.5-10.0)
[2024-10-14 07:59] LABS: Glucose Point of Care 181 mg/dl (65-105)
[2024-10-14 08:09] LABS: Alanine Aminotransferase 28 U/L (6-50); Albumin Level 3.8 g/dL (3.5-5.1); Alkaline Phosphatase 69 U/L (38-126); Anion Gap 6 mmol/L (4-12); Aspartate Amino Transferase 24 U/L (17-59); Bilirubin,Total 0.5 mg/dL (0.2-1.3); Blood Urea Nitrogen 16 mg/dL (9-20); Calcium 8.5 mg/dL (8.4-10.2); Carbon Dioxide 28 mmol/L (22-30); Chloride 105 mmol/L (98-107); Estimated CRCL calculation 96 ml/min; Estimated Glomerular Filt Rate > 60; Glucose 136 mg/dL (65-110); Potassium 3.9 mmol/L (3.4-5.0); Sodium 139 mmol/L (137-145)
[2024-10-14] MEDS: FUROSEMIDE 20 MG TABLET PO (10:00)
[2024-10-14] MEDS: EMPAGLIFLOZIN 25 MG TABLET PO (10:00)
[2024-10-14] MEDS: ASPIRIN 81 MG ENTERIC TABLET PO (10:00)
[2024-10-14] MEDS: SACUBITRIL/VALSARTAN 24-26 MG TABLET 1 TAB PO ×2 (10:00→20:49)
[2024-10-14] MEDS: carvediloL 3.125 MG TABLET PO ×2 (10:00→20:49)
[2024-10-14] MEDS: MULTIVITAMINS THERAPEUTIC TAB (*BKC) 1 TABLET PO (10:01)
[2024-10-14] MEDS: ATORVASTATIN 20 MG TABLET PO (10:01)
[2024-10-14 11:51] LABS: Glucose Point of Care 193 mg/dl (65-105)
[2024-10-14] MEDS: PERFLUTREN LIPID MICROSPHERES 1.5 ML VIAL DILUTED TO 10 ML TOTAL VOLUME IV PUSH (13:40)
--- NOTE | 2024-10-14 14:51 | IVDEFINITY ---
Prior to administration of IV Definity the patient was educated on the risks and benefits of the imaging enhancing agent including potential adverse side effects. The patient verbalized understanding. Allergies were verified. No exclusion criteria were identified and at least one of the following inclusion criteria were met: 1) physician request, 2) patient technically difficult to image (per the [place] [employer] guidelines of two or more segments not discernable within the apical view), or 3) questionable left ventricular function. ?
[2024-10-14 16:47] LABS: Glucose Point of Care 123 mg/dl (65-105)
[2024-10-14] MEDS: EZETIMIBE 10 MG TABLET PO (17:28)
--- NOTE | 2024-10-14 20:51 | ECHO_ITS ---
Patient Info Name: Narciso Roblero Age: 74 years : 1950 Gender: Male Ht: 70 in Wt: 241 lbs BSA: 2.36 m2 HR: 74 bpm BP: 129 / 81 mmHg Heart Rhythm: Sinus Rhythm Technical Quality: Fair Exam Date: 10/14/2024 1:05 PM Exam Location: Echo Lab Patient Status: Outpatient Admit Date: 10/12/2024 Staff Ordering Physician: Crystal Lubin PA-C Commodity Management Specialist: Germaine Hamm RDCS Attending Provider: Danilo Steel PA-C Referring Physician: Tristian LOUIE; Exam Type: CA echo dop bubble study w con Study Info Indications - Transient neurologic symptoms, possible afib Complete two-dimentional, color flow and Doppler transthoracic echocardiogram is performed with agitated saline and with contrast to opacify the left ventricle and to improve the delineation of the left ventricle endocardial borders. Contrast/Agitated Saline Contrast/Ag. Saline: Definity Amount: 3.00 ml Administered By: Germaine Hamm RDCS Existing IV Access: Yes IV Access Condition: patent with no signs of infiltration Contrast/Ag. Saline: Agitated Saline Amount: 20.00 ml Existing IV Access: Yes IV Access Condition: patent with no signs of infiltration Summary 1. Left ventricular systolic function is normal, estimated at 50-55%. 2. The left ventricular diastolic function is grade I diastolic dysfunction. 3. Akinesis of anteroseptum. Hypokinesis of mid inferoseptum. 4. Intact interatrial septum visualized by agitated saline imaging. 5. There is mild pulmonic regurgitation. Left Ventricle Left ventricular chamber dimension is normal. Left ventricular systolic function is normal, estimated at 50-55%. There is no increased left ventricular wall thickness. The left ventricular diastolic function is grade I diastolic dysfunction. Right Ventricle Right ventricular chamber dimension is normal. Right ventricular systolic function is normal. Left Atria Left atrial chamber dimension is normal. Right Atria Right atrial chamber dimension is normal. Atrial Septum Intact interatrial septum visualized by agitated saline imaging. Aortic Valve The aortic valve is trileaflet. There is mild aortic valve sclerosis. There is no aortic valve stenosis. There is no aortic valve regurgitation. Pulmonic Valve The pulmonic valve is normal. There is no pulmonic valve stenosis. There is mild pulmonic regurgitation. Mitral Valve The mitral valve has normal leaflets. There is no mitral valve stenosis. There is no mitral valve regurgitation. Tricuspid Valve The tricuspid valve leaflets are normal. There is no significant tricuspid valve stenosis. There is no tricuspid valve regurgitation. No pulmonary hypertension, estimated pulmonary arterial systolic pressure is Empty. Pericardium/Pleural The pericardium appears normal. There is no pericardial effusion. Inferior Vena Cava Normal inferior vena cava with >50% collapse upon inspiration consistent with Empty right atrial pressure, Empty. Aorta The aortic root size at the sinus of Valsalva is mildly dilated. The prox ascending aorta size is normal. Left Ventricular Outflow Tract Name Value Normal LVOT 2D LVOT Diameter 2.0 cm LVOT Doppler LVOT Peak Gradient 4 mmHg LVOT Mean Gradient 2 mmHg LVOT VTI 21 cm LVOT VTI/AV VTI Ratio 0.9 LVOT Stroke Volume 68 ml LVOT CO 4.5 l/min LVOT CI 1.9 l/min/m2 Pulmonic Valve Name Value Normal RVOT Doppler RVOT Peak Gradient 3 mmHg PV Doppler PV Peak Gradient 5 mmHg Mitral Valve Name Value Normal MV Doppler MV Decel [place] 324 cm/s2 MV PHT 50 ms MV Area (PHT) 4.4 cm2 4.0-5.0 MV Diastolic Function MV E Peak Velocity 56 cm/s MV A Peak Velocity 98 cm/s MV E/A 0.6 MV Decel Time 173 ms MV Annular TDI MV E/e' (Septal) 12.8 <=8.0 MV E/e' (Lateral) 11.8 <=8.0 MV E/e' (Average) 12.3 Aorta Name Value Normal Ascending Aorta Ao Root Diameter (MM) 3.5 cm Ao Root Diam Index (MM) 1.5 cm/m2 Aortic Valve Name Value Normal AV Doppler AV Peak Velocity 111 cm/s AV Peak Gradient 5 mmHg AV Mean Gradient 3 mmHg AV VTI 23 cm AV Area (Cont Eq VTI) 3.0 cm2 >=3.0 AV Area (Cont Eq Feliciano) 2.9 cm2 AV Regurgitation 2D LVOT Area 3.3 cm2 Ventricles Name Value Normal LV Dimensions 2D/MM IVS Diastolic Thickness (2D) 1.2 cm 0.6-1.0 LVID Diastole (2D) 5.5 cm 4.2-5.8 LVIW Diastolic Thickness (2D) 1.0 cm 0.6-1.0 LVID Systole (2D) 3.9 cm 2.5-4.0 LVOT Diameter 2.0 cm LV Mass (2D Cubed) 243.08 g 88.00-224.00 LV Mass Index (2D Cubed) 103 g/m2 49-115 Relative Wall Thickness (2D) 0.37 LV Fractional Shortening/Ejection Fraction 2D/MM LV Fractional Shortening (2D) 29 % 25-43 LV EF (2D Teicholz) 55 % 52-72 LV Diastolic Volume (4C MOD) 99 ml LV EF (4C MOD) 54 % LV Diastolic Volume (2C MOD) 105 ml LV EF (2C MOD) 59 % LV Diastolic Volume (BP MOD) 103 ml 62-150 LV Diastolic Volume Index (BP MOD) 44 ml/m2 34-74 LV Systolic Volume (BP MOD) 46 ml 21-61 LV Systolic Volume Index (BP MOD) 19 ml/m2 11-31 LV EF (BP MOD) 56 % 52-72 LV Diastolic Length (4C) 8.6 cm LV Systolic Length (4C) 6.8 cm LV Stroke Volume (4C MOD) 53 ml Atria Name Value Normal LA Dimensions LA Dimension (MM) 4.5 cm 3.0-4.1 LA Volume (4C A-L) 72 ml LA Volume (BP A-L) 72 ml RA Dimensions RA Area (4C) 19.3 cm2 <=18.0 Report Signatures
[2024-10-14 20:58] LABS: Glucose Point of Care 157 mg/dl (65-105)
[2024-10-15] VITALS: PULSE 70
[2024-10-15 04:00] VITALS: PULSE 77
[2024-10-15 06:00] VITALS: BP 124/72; PULSE 71; RESP 18; TEMP 36.4; O2SAT 95
[2024-10-15 06:35] LABS: Basophils Absolute Auto 0.1 K/mm3 (0.0-0.1); Basophils Percent Auto 0.8 % (0.2-1.2); Eosinophils Absolute Auto 0.1 K/mm3 (0-0.3); Eosinophils Percent Auto 1.8 % (0-4.4); Hematocrit 49.6 % (42.0-52.0); Hemoglobin 15.9 g/dL (14.0-18.0); Immature Granulocyte Absolute 0.02 K/mm3 (0.00-0.031); Immature Granulocyte Percent A 0.3 % (0-0.5); Lymphocytes Absolute Auto 1.75 K/mm3 (0.9-3.2); Mean Corpuscular HGB Conc 32.1 g/dl (32-36); Mean Corpuscular Hemoglobin 31.1 pg (26-34); Mean Corpuscular Volume 96.9 fl (80-100); Mean Platelet Volume 10.2 fl (7.4-10.4); Monocytes Absolute Auto 0.7 K/mm3 (0.1-0.6); Monocytes Percent Auto 9.5 % (2.6-8.5); Neutrophils Absolute Auto 4.7 K/mm3 (1.3-6.7); Neutrophils Percent Auto 63.6 % (45.5-73.1); Platelet Count Result 209 k/mm3 (150-375); Red Blood Count 5.12 M/mm3 (4.6-6.20); Red Cell Distribution Width 13.6 % (11.5-14.5); White Blood Count 7.3 K/mm3 (4.5-10.0)
[2024-10-15 06:43] LABS: Alanine Aminotransferase 28 U/L (6-50); Alkaline Phosphatase 71 U/L (38-126); Anion Gap 7 mmol/L (4-12); Aspartate Amino Transferase 24 U/L (17-59); Bilirubin,Total 0.5 mg/dL (0.2-1.3); Blood Urea Nitrogen 17 mg/dL (9-20); Calcium 8.6 mg/dL (8.4-10.2); Carbon Dioxide 28 mmol/L (22-30); Chloride 104 mmol/L (98-107); Estimated CRCL calculation 93 ml/min; Estimated Glomerular Filt Rate > 60; Glucose 138 mg/dL (65-110); Potassium 4.2 mmol/L (3.4-5.0); Sodium 139 mmol/L (137-145)
[2024-10-15 07:53] LABS: Glucose Point of Care 145 mg/dl (65-105)
[2024-10-15 08:35] VITALS: PULSE 71
[2024-10-15] MEDS: carvediloL 3.125 MG TABLET PO (08:35)
[2024-10-15] MEDS: ATORVASTATIN 20 MG TABLET PO (08:35)
[2024-10-15] MEDS: MULTIVITAMINS THERAPEUTIC TAB (*BKC) 1 TABLET PO (08:35)
[2024-10-15] MEDS: ASPIRIN 81 MG ENTERIC TABLET PO (08:35)
[2024-10-15] MEDS: FUROSEMIDE 20 MG TABLET PO (08:36)
[2024-10-15] MEDS: EMPAGLIFLOZIN 25 MG TABLET PO (08:36)
[2024-10-15] MEDS: SACUBITRIL/VALSARTAN 24-26 MG TABLET 1 TAB PO (08:36)
--- OUTSIDE RECORDS SUMMARY | 2024-10-15 08:54 | XMS_ITS | Encounter Summary ---
Author Organization [facility] Address [address] [place] [address] Care Team Providers Care Master Ship Name Role Phone Vipul Núñez Bianca SHAFER Primary Care Provider + Christopher Cain MD Unavailable [phone] Ian Sandoval MD Unavailable [phone] Encounter Details Date Type Department Care Team (Late st Contact Info) Description 08/24/2021 Askem Message Enc [facility] [address] [address] [place], [facility] Provider lab results Social History Tobacco Use [...] Sex Assigned at Male 07/19/2024 8:07 AM FLOOR PERSON Legal Sex Male 8:19 AM FLOOR PERSON Gender Identity Male 07/21/2021 4:30 AM FLOOR PERSON Sexual Orientation Not on file Occupation Industry Job Start Date Job End Date Not on file Not on file Not on file Not on file COVID-19 Exposure Response Date Recorded In the last 10 days, have yo u been in contact with someone who was confirmed or suspected to have Coronavirus/COVID-19? No / Unsure 08/06/2021 11:17 AM FLOOR PERSON documented as of this encounter Plan of Treatment Upcoming Encounters Date Type Department Care Team (Late st Contact Info) Description 01/31/2025 11:45 AM CDT Office Visit [facility] [phone] Christopher Cain MD [address] [phone] documented as of this encounter Visit Diagnoses Not on filedocumented in this encounter Additional Health Concerns Assessment Noted Time PHQ-9 Depression Total Score: 0 06/30/19 22 9:32 AM FLOOR PERSON documented as of this encounter Care Teams Master Ship Relationship Specialty Start Date End Date Vipul Núñez DO [address] [place] [address] PCP - General FAMILY PRACTICE 06/14/18 Christopher Cain MD 3 [facility] [address] [place] [phone] [place] Dish Washer CARDIOVASCULAR DISEASE 07/19/18 Ian Sandoval MD 3 [facility] [address] [place] [phone] COLON/RECTAL SURGERY 02/27/20 documented as of this encounter
--- OUTSIDE RECORDS SUMMARY | 2024-10-15 08:54 | XMS_ITS | Encounter Summary ---
Author Organization [facility] Address [facility] [place] [address] Care Team Providers Care Press Room Supervisor Name Role Phone Vipul Núñez Bianca SHAFER Primary Care Provider + Christopher Cain MD Unavailable [phone] Ian Sandoval MD Unavailable [phone] Encounter Details Date Type Department Care Team (Late st Contact Info) Description 10/09/2020 Abstract [facility] [address] Yisel Alanis MA Social History Tobacco Use [...] Sex Assigned at Male 07/19/2024 8:07 AM ROLLER STAINER Legal Sex Male 8:19 AM ROLLER STAINER Gender Identity Male 07/21/2021 4:30 AM ROLLER STAINER Sexual Orientation Not on file Occupation Industry [...] Description 01/31/2025 11:45 AM CDT Office Visit [facility] [address] Christopher Cain MD [address] [facility] [address] [place] [phone] documented as of this encounter Procedures [...] Rule Out 06/30/2021 06/30/2021 2021 12:31 AM ROLLER STAINER Assessment Noted Time PHQ-9 Depression Total Score: 11 021 9:07 AM ROLLER STAINER documented as of this encounter Care Teams Press Room Supervisor Relationship Specialty Start Date End Date Vipul Núñez DO [address] [place] [address] PCP - General FAMILY PRACTICE 06/14/18 Christopher Cain MD [address] [facility] [address] [place] [phone] [place] Manager Cancer CARDIOVASCULAR DISEASE 07/19/18 Ian Sandoval MD [address] [facility] [address] [place] [phone] COLON/RECTAL SURGERY 02/27/20 documented as of this encounter
--- OUTSIDE RECORDS SUMMARY | 2024-10-15 08:54 | XMS_ITS | Clinical Summary ---
Author Organization [facility] Address [address] [place] [address] Care Team Providers Care Wind Farm Engineer Name Role Phone BrooklynnVipul doe Bianca SHAFER Primary Care Provider + Christopher Cain MD Unavailable [phone] Ian Sandoval MD Unavailable [phone] Allergies No known active allergies Medications aspirin EC (ECOTRIN) 81 MG tablet Take 1 tablet (81 mg total) by mouth nightly. Active Glucose Blood (ONE TOUCH ULTRA TEST STRIPS) test stripIndications: Type 2 diabetes mellitus with diabetic mononeuropathy, without long-term current use of insulin ([facility]) 1 each by Other route daily. 100 [...] mononeuropathy, without long-term current use of insulin ([facility]/HCC HHS/HCC) Check blood sugar once daily in AM when fasting 1 kit 04/27/20 22 Active Lancets (ONETOUCH ULTRASOFT) lancetsIndication s:Type 2 diabetes mellitus with diabetic mononeuropathy, without long-term current use of insulin ([facility]) Check blood sugar once daily in AM [...] mononeuropathy, without long-term current use of insulin ([facility]),Chronic combined systolic and diastolic congestive heart failure ([facility] HHS/HCC) TAKE 1 TABLET BY MOUTH EVERY DAY 90 tablet 1 07/30/19 25 Active furosemide (LASIX) 20 MG tabletIndications :Chronic heart failure with preserved ejection fraction ([facility] HHS/HCC) TAKE 1 TABLET BY MOUTH EVERY DAY 90 tablet 09/10/19 25 Active metFORMIN ER (GLUCOPHAGE-XR) 500 MG 24 hr tabletIndications :Type 2 diabetes mellitus with diabetic mononeuropathy, without long-term current use of insulin ([facility] HHS/HCC) TAKE 3 TABLETS (1,500 MG TOTAL) BY MOUTH DAILY WITH BREAKFAST 270 tablet 2 09/21/19 25 Active atorvastatin (LIPITOR) 80 MG tabletIndications :Mixed hyperlipidemia TAKE 1 TABLET BY MOUTH EVERYDAY AT BEDTIME 90 tablet 10/08/19 25 Active metFORMIN ER (GLUCOPHAGE-XR) 500 MG 24 hr tabletIndications :Type 2 diabetes mellitus with diabetic mononeuropathy, without long-term current use of insulin ([facility]) Take 3 tablets (1,500 mg total) by mouth daily with breakfast. 270 tablet 2 12/25/19 24 2024 Discontinued atorvastatin (LIPITOR) 80 MG tabletIndications :Mixed hyperlipidemia TAKE 1 TABLET BY MOUTH EVERYDAY AT BEDTIME 90 tablet 07/08/19 25 2024 Discontinued Active Problems Problem Noted Date Diagnosed Date Aneurysm of ascending aorta without rupture 06/21 Chronic heart failure with p reserved ejection fraction ([facility]) 07/19/2024 Major depressive disorder wi th single episode, in partial remission 06/07/2023 TIA (transient ischemic attack) 09/02/2022 Morbid (severe) obesity due to excess calories 0 08/23/2022 Hyperlipidemia associated wi th type 2 diabetes mellitus ([facility]) 08/27/2020 S/P carpal tunnel release 03/04/2020 Erectile dysfunction, unspecified erectile dysfu nction type 03/04/2020 Wright's cyst of knee, right 06/05/2019 BMI 39.0-39.9,adult 09/17/2018 CATE (obstructive sleep apnea) 07/30/2018 Type 2 diabetes mellitus wit h diabetic mononeuropathy, without long-term current use of insulin ([facility]) 06/25/2018 Anxiety 06/25/2018 Hypertension 06/25/2018 Coronary artery disease of n ative artery of [place] heart with stable angina pectoris 06/25/2018 Hyperlipidemia, unspecified hyperlipidemia type 06/25/2018 Primary insomnia 06/25/2018 Knee pain 09/02/2016 History of coronary artery stent placement 02/04 Hernia of anterior abdominal wall 02/14/2014 Cardiomyopathy ([facility]) 07/03/2013 CHF (congestive heart failure) ([facility]) 06/18/2013 Arthralgia of hip 10/22/2012 Hypertension associated with type 2 diabetes mellitus ([facility]) 06/19/2008 Resolved Problems Problem Noted Date Diagnosed Date Resolved Date BMI 40.0-44.9, adult 08/27/2020 022 Bilateral hand pain 06/25/2018 08/24/19 23 Intestinal obstruction ([facility]/HCC [facility]) 12/16/2015 06/07/2023 Class 3 severe obesity due t o excess calories with serious comorbidity in adult, unspecified BMI 01/15/2014 11/02/2021 Surgical follow-up care 03/18/201302/17 Diverticulitis of colon 10/15/201005/20 Encounters Date Type Department Care Team Description 07/30/2024 Scan [facility] INFO SRVCS Scanned, Doc Med Group 07/26/2024 11:45 AM RN APPEALS Office Visit [facility] [phone] Martina Caro MD Cahill, Thomas B, MD Coronary Artery Disease (6MO) 07/26/2024 Travel 07/19/2024 8:00 AM RN APPEALS Office Visit [facility] Family & Internal Medicine - [address] [phone] Vipul Núñez, DO Hypertension; Diabetes 07/19/2024 Travel from Last 3 Months Immunizations Immunization Administration Dates Next Due Fluzone High Dose (IIV, triv alent, 0.5mL) 04/08/2024 Fluzone High Dose - >Age 65 (Prefilled Syringe) 04/27/2022,04/27/2022,04/05/2021,2019,06/05/2019,06/26/2018 Influenza (Generic) 04/03/2014 Influenza Adult (Generic) 04/03/2023 MODERNA COVID-19 (12+) MRNA, LNP-S, PF, 100 MCG/ 0.5 ML DOSE 08/25/2020,07/23/2020 MODERNA COVID-19 (POLYMER ENGINEER BREA ELISABETH), MRNA, LNP-S, PF, 50 MCG/ 0.25 ML DOSE 05/10/2021 Pneumococcal (Pneumovax 23) 10/22/2019 Pneumococcal (Prevnar 13) 06/26/2018 Shingrix 05/31/2023,02/27/2023 Tdap (Historical Only-select from [employer]) 10/22/2019 Family History Medical History Relation Comments Arthritis Father Cancer Father lung Lung Disease Father Stroke Maternal Grandmother Heart Disease Mother Hypertension Mother Lung Disease Mother Stroke Mother Cancer Sister 1 breast cancer Relation Status Comments Brother Alive Daughter 1 Alive Daughter 2 Alive Father (Age 63) of lung c ancer, sock examiner, smoker Maternal Grandmother (Age 89) Mother [...] Sex Assigned at Male 07/19/2024 8:07 AM RN APPEALS Legal Sex Male 8:19 AM RN APPEALS Gender Identity Male 07/21/2021 4:30 AM RN APPEALS Sexual Orientation Not on file Occupation Industry Job Start Date Job End Date Not on file Not on file Not on file Not on file Last Filed Vital Signs Vital Sign Reading Time Taken Comments Blood Pressure 106/62 07/26/2024 11:36 AM RN APPEALS Pulse 80 07/26/2024 11:36 AM RN APPEALS Temperature 36.3 C (97.3 F) 07/19/2024 8:08 AM RN APPEALS Respiratory Rate 18 07/19/2024 8:08 AM RN APPEALS Oxygen Saturation 94% 07/26/2024 11:36 AM RN APPEALS Inhaled Oxygen Concentration - - Weight 110.9 kg (244 lb 8 oz) 07/26/2024 11:36 A M RN APPEALS Height 175.3 cm (5' 9 ) 07/26/2024 11:36 AM RN APPEALS Body Mass Index 36.11 07/26/2024 11:36 AM RN APPEALS Plan of Treatment Upcoming Encounters Date Type Department Care Team (Late st Contact Info) Description 01/31/2025 11:45 AM CDT Office Visit [facility] [phone] Christopher Cain MD [address] [place] [phone] Health Maintenance Due Date Last Done Comments RSV Immunization or 60+ Years (1 - Risk 60-74 years 1-dose series) 2011 Annual Medicare Wellness Visit 11/30/2023 11/28/2022 COVID-19 Vaccine (2023- season) 2024 04/08/2024, 03/13/2023, 03/02/2022, Additional history [...] Zoster Vaccines Completed 05/31/2023, 02/27/2023 PHQ-2 (Physician Hilbert) Completed 07/19/2024 Meningococcal B Vaccine Aged Out [...] Comments COLLECT.CAPILLARY (FNGR,HEEL,EAR) Routine 07/19/2024 8:03 AM RN APPEALS Type 2 diabetes mellitus with diabetic mononeuropathy, without long-term current use of insulin HEMOGLOBIN, GLYCOSYLATED Routine 07/19/2024 Type 2 diabetes mellitus with diabetic mononeuropathy, without long-term current use of insulin (CMS/HCC HHS/HCC) LIPID PANEL Routine 03/13/2024 9:54 AM CDT Type 2 diabetes mellitus with diabetic mononeuropathy, without long-term current use of insulin Hyperlipidemia associated with type 2 diabetes mellitus Hypertension associated with type 2 diabetes mellitus Balance disorder DIABETIC RETINOPATHY EXAM (NEGATIVE)(SCAN ORDER) Routine 12/07/2023 HEPATITIS C ANTIBODY Routine 06/05/2019 10:22 AM RN APPEALS Need for hepatitis C screening test COLONOSCOPY GENERIC (SCAN ORDER) Routine 11/14/2018 12:00 AM CDT from Last 3 Months or Most Recently Relevant to Health Maintenance Results * (ABNORMAL) HEMOGLOBIN, GLYCOSYLATED (07/19/2024) HGB A1C 7.4(A) % [facility] 07/19/2024 us Vipul Núñez DO LABORATORY Final Re sult [facility] [address] [place] [address], [place] * LIPID PANEL (03/13/2024 9:54 AM CDT) CHOLESTEROL 132 <200 MG/DL 03/13/2024 4:[address] [facility] [place] TRIGLYCERIDES 105 <150 MG/DL 03/13/2024 4:43 PM CDT [facility] [place] HDL 45 >40 MG/DL 03/13/2024 4:43 PM CDT [facility] [place] LDL-C 66 <100 MG/DL 03/13/2024 4:43 PM CDT [facility] [place] VLDL CALCULATION 21 5 - 28 MG/DL 03/13/2024 4:43 PM CDT [facility] CHOL/HDL RATIO 2.9 0.0 - 4.0 03/13/2024 4:43 PM CDT [facility] LDL/HDL 1.5 0.41 - 2.13 03/13/2024 4:43 PM CDT [facility] NON HDL CHOLESTEROL 87 <140 MG/DL 03/13/2024 4:43 PM CDT [facility] 03/13/2024 9:54 AM CDT Vipul Núñez DO LABORATORY Final Re sult Performing Organization Address City/[facility]/ZIP Co de Phone Number [facility] [address] [place] [address], * DIABETIC RETINOPATHY EXAM (NEGATIVE) (12/07/2023) Doc [facility] Scanned SCANNING Final Resu lt Performing Organization Address [facility] Co de Phone Number [facility] * HEPATITIS C ANTIBODY (06/05/2019 10:22 AM RN APPEALS) HEPATITIS C AB NON-REACT JODI NON-REACT JODI [facility] SIGNAL TO CUTOFF 0.01 <1.00 [facility] Comment: HCV antibody was non-reactive. There is no laboratory evidence of HCV infection. In most cases, no further action is required. However, if recent HCV exposure is suspected, a test for HCV RNA (test code 56646) is suggested. For additional information please refer to http://education.SimuForm.KO-SU/faq/OBT69w7 (This link is being provided for informational/ educational purposes only.) 06/05/2019 10:2 2 AM RN APPEALS 06/06/2019 3:41 AM RN APPEALS Narrative Resulting Agency Comment Performing Organization Information: Site ID: [id number] Name: [facility] Address: [address] [address] Director: Nick Kraft D.O., MPH us Vipul Núñez DO LABORATORY Final Re sult [facility] * COLONOSCOPY (11/14/2018 12:00 AM CDT) 11/14/2018 us Documents Scanned SCANNING Final Result [facility] [address] [address] from Last 3 Months or Most Recently Relevant to Health Maintenance Insurance [place] [address] Care Teams Wind Farm Engineer Relationship Specialty Start Date End Date Vipul Núñez DO [address] [place] [address] PCP - General FAMILY PRACTICE 06/14/18 Christopher Cain MD 3 [facility] [address] [place] [phone] [place] Visiting Teacher CARDIOVASCULAR DISEASE 07/19/18 Ian Sandoval MD [address] [place] [phone] COLON/RECTAL SURGERY 02/27/20
--- OUTSIDE RECORDS SUMMARY | 2024-10-15 08:54 | XMS_ITS | Encounter Summary ---
Author Organization [facility] Address [address] [place] [address] Care Team Providers Care Ab Initio Etl Developer Name Role Phone Vipul Núñez Primary Care Provider + Christopher Cain MD Unavailable [phone] Ian Sandoval MD Unavailable [phone] Encounter Details Date Type Department Care Team (Late st Contact Info) Description 07/05/2024 There Corporationt Message [facility] [phone] Christopher Cain MD [address] [phone] Blood test Social History Tobacco [...] Sex Assigned at Male 07/19/2024 8:07 AM SCADA OPERATOR Legal Sex Male 8:19 AM SCADA OPERATOR Gender Identity Male 07/21/2021 4:30 AM SCADA OPERATOR Sexual Orientation Not on file Occupation Industry Job Start Date Job End Date Not on file Not on file Not on file Not on file documented as of this encounter Plan of Treatment Upcoming Encounters Date Type Department Care Team (Late st Contact Info) Description 01/31/2025 11:45 AM CDT Office Visit [facility] [address] Christopher Cain MD 3 [facility] [address] [place] [phone] documented as of this encounter Visit Diagnoses Not on filedocumented in this encounter Additional Health Concerns Assessment Noted Time PHQ-9 Depression Total Score: 2 11/29/19 23 8:16 AM CDT documented as of this encounter Care Teams Ab Initio Etl Developer Relationship Specialty Start Date End Date Vipul Núñez DO [address] [place] [id number] PCP - General FAMILY PRACTICE 06/14/18 Christopher Cain MD 3 [facility] [address] [place] [phone] [place] Nailhead Puncher CARDIOVASCULAR DISEASE 07/19/18 Ian Sandoval MD 3 [facility] [address] [place] [phone] COLON/RECTAL SURGERY 02/27/20 documented as of this encounter
--- OUTSIDE RECORDS SUMMARY | 2024-10-15 08:54 | XMS_ITS | Encounter Summary ---
Author Organization [facility] Address [address] [place] [address] Care Team Providers Care Hospice Director Name Role Phone FrancescoVipul cano Bianca SHAFER Primary Care Provider + Christopher Cain MD Unavailable [phone] Ian Sandoval MD Unavailable [phone] Encounter Details Date Type Department Care Team (Late Contact Info) Description 08/07/2018 Abstract [facility] at [address] [id number] Yisel Alanis MA Social History Tobacco Use [...] Sex Assigned at Male 07/19/2024 8:07 AM SUSTAINABLE PRODUCTS MARKETING MANAGER Legal Sex Male 8:19 AM SUSTAINABLE PRODUCTS MARKETING MANAGER Gender Identity Male 07/21/2021 4:30 AM SUSTAINABLE PRODUCTS MARKETING MANAGER Sexual Orientation Not on file documented as of this encounter Plan of Treatment Upcoming Encounters Date Type Department Care Team (Late Contact Info) Description 01/31/2025 11:45 AM CDT Office Visit [facility] [phone] Christopher Cain MD 3 [facility] Suite [facility] [place] [address] documented as of this encounter Procedures [...] Rule Out 06/30/2021 06/30/2021 2021 12:31 AM SUSTAINABLE PRODUCTS MARKETING MANAGER Assessment Noted Time PHQ-9 Depression Total Score: 18 019 8:41 AM SUSTAINABLE PRODUCTS MARKETING MANAGER documented as of this encounter Care Teams Hospice Director Relationship Specialty Start Date End Date Vipul Núñez DO [address] [place] [address] PCP - General FAMILY PRACTICE 06/14/18 Christopher Cain MD 3 [facility] [address] [place] [phone] [place] Joint Cutter Machine CARDIOVASCULAR DISEASE 07/19/18 Ian Sandoval MD 3 [facility] [address] [place], [place] [address] COLON/RECTAL SURGERY 02/27/20 documented as of this encounter
--- OUTSIDE RECORDS SUMMARY | 2024-10-15 08:54 | XMS_ITS | Encounter Summary ---
Author Organization [facility] Address [facility] [place] [address] Care Team Providers Care Track Repair Supervisor Name Role Phone Vipul Núñez Bianca SHAFER Primary Care Provider + Christopher Cain MD Unavailable Ian Sandoval MD Unavailable [phone] Encounter Details Date Type Department Care Team (Late st Contact Info) Description 04/28/2021 Abstract [facility] [address] Yisel Alanis MA Social History Tobacco Use [...] Sex Assigned at Male 07/19/2024 8:07 AM AUTOMOBILE MECHANIC SUPERVISOR Legal Sex Male 8:19 AM AUTOMOBILE MECHANIC SUPERVISOR Gender Identity Male 07/21/2021 4:30 AM AUTOMOBILE MECHANIC SUPERVISOR Sexual Orientation Not on file Occupation Industry [...] Description 01/31/2025 11:45 AM CDT Office Visit [facility] [address] [phone] Christopher Cain MD 3 [facility] [address] [place] [phone] documented as of this encounter Procedures [...] Rule Out 06/30/2021 06/30/2021 2021 12:31 AM AUTOMOBILE MECHANIC SUPERVISOR Assessment Noted Time PHQ-9 Depression Total Score: 11 08/27/ 021 9:07 AM AUTOMOBILE MECHANIC SUPERVISOR documented as of this encounter Care Teams Track Repair Supervisor Relationship Specialty Start Date End Date Vipul Núñez DO [address] [place] [address] PCP - General FAMILY PRACTICE 06/14/18 Christopher Cain MD [address] [place] [phone] [place] Pattern Painter CARDIOVASCULAR DISEASE 07/19/18 Ian Sandoval MD 3 [facility] [address] [place] [phone] COLON/RECTAL SURGERY 02/27/20 documented as of this encounter
--- OUTSIDE RECORDS SUMMARY | 2024-10-15 08:54 | XMS_ITS | Encounter Summary ---
Author Organization [facility] Address [address] [place] [address] Care Team Providers Care Solutions Analyst Name Role Phone Vipul Núñez Bianca SHAFER Primary Care Provider + Christopher Cain MD Unavailable [phone] Ian Sandoval MD Unavailable [phone] Encounter Details Date Type Department Care Team (Latest Contact Info) Description 03/10/2020 [employer]or's Circlet Message Enc [facility] - [address], [address] [place] [address] Jorje Oneill MD [address] [place] [address] RE: RE: RE: Question Social [...] Sex Assigned at Male 07/19/2024 8:07 AM EMERY GRINDER Legal Sex Male 8:19 AM EMERY GRINDER Gender Identity Male 07/21/2021 4:30 AM EMERY GRINDER Sexual Orientation Not on file Occupation Industry [...] Description 01/31/2025 11:45 AM CDT Office Visit [facility] [phone] Christopher Cain MD [address] [phone] documented as of this encounter Visit Diagnoses Not on filedocumented in this encounter Additional Health Concerns Infection Onset Date Last Indicated Resolved Time COVID-19 Rule Out 09/19/2020 09/19/2020 09/20/2020 4:40 PM CDT COVID-19 Rule Out 06/30/2021 06/30/2021 2021 12:31 AM EMERY GRINDER Assessment Noted Time PHQ-9 Depression Total Score: 4 10/22/19 20 9:18 AM CDT documented as of this encounter Care Teams Solutions Analyst Relationship Specialty Start Date End Date Vipul Núñez DO [address] [place] [address] PCP - General FAMILY PRACTICE 06/14/18 Christopher Cain MD [address] [phone] [place] Field Foreman CARDIOVASCULAR DISEASE 07/19/18 Ian Sandoval MD 3 [facility] [address] [place] [address] COLON/RECTAL SURGERY 02/27/20 documented as of this encounter
--- OUTSIDE RECORDS SUMMARY | 2024-10-15 08:54 | XMS_ITS | Encounter Summary ---
Author Organization [facility] Address [address] [place] [address] Care Team Providers Care Inspector Repairer Name Role Phone Vipul Núñez Primary Care Provider + Christopher Cain MD Unavailable [phone] Ian Sandoval MD Unavailable [phone] Encounter Details Date Type Department Care Team (Latest Contact Info) Description 05/30/2022 Biomeasure Message [facility] [phone] Christopher Cain MD [address] [phone] Blood test before upcoming appointment [...] Sex Assigned at Male 07/19/2024 8:07 AM DELIVERY AND INSTALLATION SUBCONTRACTOR Legal Sex Male 8:19 AM DELIVERY AND INSTALLATION SUBCONTRACTOR Gender Identity Male 07/21/2021 4:30 AM DELIVERY AND INSTALLATION SUBCONTRACTOR Sexual Orientation Not on file Occupation Industry Job Start Date Job End Date Not on file Not on file Not on file Not on file COVID-19 Exposure Response Date Recorded In the last 10 days, have yo u been in contact with someone who was confirmed or suspected to have Coronavirus/COVID-19? No / Unsure 05/16/2022 8:18 AM DELIVERY AND INSTALLATION SUBCONTRACTOR documented as of this encounter Plan of Treatment Upcoming Encounters Date Type Department Care Team (Late st Contact Info) Description 01/31/2025 11:45 AM CDT Office Visit [facility] [phone] Christopher Cain MD [address] [phone] documented as of this encounter Visit Diagnoses Not on filedocumented in this encounter Additional Health Concerns Assessment Noted Time PHQ-9 Depression Total Score: 0 06/30/19 22 9:32 AM DELIVERY AND INSTALLATION SUBCONTRACTOR documented as of this encounter Care Teams Inspector Repairer Relationship Specialty Start Date End Date Vipul Núñez DO [address] [place] [address] PCP - General FAMILY PRACTICE 06/14/18 Christopher Cain MD [address] [phone] [place] Structural Analysis Engineer CARDIOVASCULAR DISEASE 07/19/18 Ian Sandoval MD [address] [phone] COLON/RECTAL SURGERY 02/27/20 documented as of this encounter
--- OUTSIDE RECORDS SUMMARY | 2024-10-15 08:54 | XMS_ITS | Encounter Summary ---
Author Organization [facility] Address [place] [address] Care Team Providers Care Sampling Expert Name Role Phone Vipul Núñez Bianca SHAFER Primary Care Provider + Christopher Cain MD Unavailable [phone] Ian Sandoval MD Unavailable [phone] Encounter Details Date Type Department Care Team (Late st Contact Info) Description 08/24/2021 Abstract [facility] [address] Yisel Alanis MA Social History Tobacco Use [...] Sex Assigned at Male 07/19/2024 8:07 AM ENVIRONMENTAL LAWYER Legal Sex Male 8:19 AM ENVIRONMENTAL LAWYER Gender Identity Male 07/21/2021 4:30 AM ENVIRONMENTAL LAWYER Sexual Orientation Not on file Occupation Industry Job Start Date Job End Date Not on file Not on file Not on file Not on file COVID-19 Exposure Response Date Recorded In the last 10 days, have kathie u been in contact with someone who was confirmed or suspected to have Coronavirus/COVID-19? No / Unsure 08/06/2021 11:17 AM ENVIRONMENTAL LAWYER documented as of this encounter Plan of Treatment Upcoming Encounters Date Type Department Care Team (Late st Contact Info) Description 01/31/2025 11:45 AM CDT Office Visit [facility] [phone] Christopher Cain MD 3 [facility] [place] [address] [place] [phone] documented as of this encounter Procedures [...] Total Score: 0 06/30/19 22 9:32 AM ENVIRONMENTAL LAWYER documented as of this encounter Care Teams Sampling Expert Relationship Specialty Start Date End Date Vipul Núñez DO [address] [place] [phone] PCP - General FAMILY PRACTICE 06/14/18 Christopher Cain MD 3 [facility] [address] [place] [phone] [place] Insulation Blower CARDIOVASCULAR DISEASE 07/19/18 Ian Sandoval MD 3 [facility] [address] [place] [phone] COLON/RECTAL SURGERY 02/27/20 documented as of this encounter
--- OUTSIDE RECORDS SUMMARY | 2024-10-15 08:54 | XMS_ITS | Clinical Summary ---
Author Organization [facility] Address [address] [place] [address] Care Team Providers Care Railroad Engineer Name Role Phone Unavailable Primary Care Provider Unavailabl e Social History Tobacco Use Types Packs/Day Years Used Date Smoking Tobacco: Never Assessed Sex and Gender Information Value Date Recorded Sex Assigned at Not on file Legal Sex Male 4:28 PM BANKING PIN ADJUSTER Gender Identity Not on file Sexual Orientation [...]
--- NOTE | 2024-10-15 09:14 | P.DS_ITS ---
DS: Admitting Diagnosis Discharge Date 10/15/2024 Admitting Diagnosis Transient neurological symptoms DS: Discharge Diagnosis Discharge Diagnosis (1) Transient neurological symptoms: Code(s): R29.818 - Other symptoms and signs involving the nervous system Status: Acute (2) Atrial fibrillation: Code(s): I48.91 - Unspecified atrial fibrillation Status: Acute (3) Nonsustained ventricular tachycardia: Code(s): I47.29 - Other ventricular tachycardia Status: Acute (4) Hypertension: Code(s): I10 - Essential (primary) hypertension Status: Acute (5) Dyslipidemia: Code(s): E78.5 - Hyperlipidemia, unspecified Status: Acute (6) Type 2 diabetes mellitus: Code(s): E11.9 - Type 2 diabetes mellitus without complications Status: Acute (7) Coronary artery disease: Code(s): I25.10 - Atherosclerotic heart disease of [place] coronary artery without angina pectoris Status: Acute (8) Obstructive sleep apnea: Code(s): G47.33 - Obstructive sleep apnea (adult) (pediatric) Status: Acute (9) Transient ischemic attack: Code(s): G45.9 - Transient cerebral ischemic attack, unspecified Status: Acute DS: Summary Hospital Course Reason for hospitalization: Dizziness Hospital Course: This is a very pleasant 74-year-old male with history of transient ischemic attack, coronary artery disease status post stent, hypertension, dyslipidemia, type 2 diabetes mellitus, and gastroesophageal reflux disease who presented to the emergency department via EMS with complaints of dizziness. He felt fine when he got up this morning and went to visit his daughter. Daughter thought the patient looked unwell and a bit confused when he came to the door however he tells me he was feeling just fine and never realized that anything was wrong. He had a bagel for breakfast and when he went to stand up he noticed that his gait was often that he was listing to the side. Apparently he told his daughter that he was feeling off balance and she called the ambulance. He does not remember the ambulance ride and seems to be confused about the events that transpired earlier today. says the patient has had a couple of similar episodes over the last year ?almost like he does not know what is going on with a glazed look on his face.? These episodes are transient and there has never been a loss of consciousness or witnessed seizure activity. At the time my evaluation he has no complaints and states he feels just fine. He denies current vertigo, visual changes, focal weakness, paresthesias, facial droop, difficulty speaking and swallowing, palpitations, sensations of racing heart, chest pain, shortness of breath, nausea, vomiting, diarrhea, and dysuria. Of note, was reportedly going in and out of atrial fibrillation according to EMS however he has been in sinus rhythm since arrival. In the ED: Vital signs were stable on arrival. Orthostatic vital signs were negative. CMP and CBC were pretty unremarkable with the only outliers being a BUN of 24 and a glucose of 230. EKG showed sinus rhythm without acute ST segment changes and small Q-waves in lead 3 and AVF. He was given aspirin 324 mg and was admitted to the telemetry floor in this setting for close monitoring and further evaluation. Neurology consulted, had a long discussion regarding possibility partial complex seizures CT/unremarkable, CT scan of the brain also unremarkable. It showed 30% narrowing of the right carotid bulb and 0% of the left carotid bulb. Patient remained on aspirin 81 mg and atorvastatin 20 mg daily. Brain MRI obtained and showed no acute intracranial process, no enhancing lesions, and few scattered T2 and FLAIR hyperintense signal areas suggestive of deep white matter ischemic changes. Echocardiogram showed normal LV systolic function EF 50-55%, grade 1 LV diastolic dysfunction, akinesis of the anterior septum and hypokinesis of mid inferior septum likely residual from previous ME. EKG showed sinus rhythm, low QRS voltage in precordial leads, ND interval 188, QRS 13, QTC 453. EEG obtained and pending at time of discharge, neurology will follow up these results with the patient in the outpatient setting. Patient did have a run of ventricular tachycardia for 10 seconds which was captured on telemetry, but patient expressed that he did not have any symptoms whatsoever, as he was having a discussion with his at the time the run was observed on telemetry and did not have any symptoms at all. This could be contributing factor to patient's transient neurological changes. Less likely complex partial seizures but difficult to rule out. Likely symptoms attributed to TIA but once again difficult to pinpoint. Patient otherwise stable and has had no symptoms since his admission. He has expressed great interest in getting discharged as he states that he feels great and has not had any symptoms since the day of admission. Patient otherwise stable with stable blood work, vital signs, and a benign physical exam. Patient has a data management consultant that he follows up with in the outpatient setting and will be recommended that he obtain an order for a 30 day cardiac event monitor. Status at Discharge Functional status at discharge: independent ambulation Overall status at discharge: patient is back to baseline Time Spent with Patient Time attestation: Total time spent providing and/or coordinating discharge services: 45 Exam Narrative: General: Well-developed, nontoxic-appearing male sitting up in bed in no distress. Weight: 109.6 kg. BMI: 34.7. HEENT: PERRL, EOMI. Sclera anicteric. Oral mucosa moist. Oropharynx clear. Neck: Supple. No obvious carotid bruits. Respiratory: Lungs are clear to auscultation bilaterally. Cardiovascular: Regular rate and rhythm with S1-S2. The murmur at the left upper sternal border. Gastrointestinal: Abdomen is soft, nontender, and nondistended with positive bowel sounds. Skin: Warm and dry. No rash or lesions on limited exam. Extremities: No cyanosis, clubbing, or edema. Radial and pedal pulses intact. Neurological: Alert and oriented x4. Cranial nerves 2-12 are grossly intact. Speech is clear. No facial asymmetry. No pronator drift. 5/5 in the upper and lower extremities. Neurovascular intact. Normal [id number] and rapid alternating movements. Psychiatric: Pleasant and cooperative with normal mood and affect. Judgment and insight intact. DS: Data Data Completed and Pending Labs on day of discharge: Labs from last 24 hours 10/15/24 10/15/24 10/14/24 07:50 05:57 20:19 WBC 7.3 RBC 5.12 Hgb 15.9 Hct 49.6 MCV 96.9 MCH 31.1 MCHC 32.1 RDW 13.6 Plt Count 209 MPV 10.2 Immature Gran % (Auto) 0.3 Neut % (Auto) 63.6 Lymph % (Auto) 24.0 [place] % (Auto) 9.5 H Eos % (Auto) 1.8 Baso % (Auto) 0.8 Lymph # (Auto) 1.75 [place] # (Auto) 0.7 H Eos # (Auto) 0.1 Baso # (Auto) 0.1 Abs Immat Gran (auto) 0.02 Absolute Neuts (auto) 4.7 Absolute Nucleated RBC 0.000 Nucleated RBC % 0.0 Sodium 139 Potassium 4.2 Chloride 104 Carbon Dioxide 28 Anion Gap 7 BUN 17 Creatinine 0.75 Estim Creat Clear Calc 93 Estimated GFR > 60 Glucose 138 H POC Capillary Glucose 145 H 157 H Calcium 8.6 Total Bilirubin 0.5 AST 24 ALT 28 Alkaline Phosphatase 71 Total Protein 7.0 Albumin 4.0 10/14/24 10/14/24 16:45 11:48 WBC RBC Hgb Hct MCV MCH MCHC RDW Plt Count MPV Immature Gran % (Auto) Neut % (Auto) Lymph % (Auto) [place] % (Auto) Eos % (Auto) Baso % (Auto) Lymph # (Auto) [place] # (Auto) Eos # (Auto) Baso # (Auto) Abs Immat Gran (auto) Absolute Neuts (auto) Absolute Nucleated RBC Nucleated RBC % Sodium Potassium Chloride Carbon Dioxide Anion Gap BUN Creatinine Estim Creat Clear Calc Estimated GFR Glucose POC Capillary Glucose 123 H 193 H Calcium Total Bilirubin AST ALT Alkaline Phosphatase Total Protein Albumin Discharge Plan Discharge Attending physician on discharge: Danilo Steel Consulting providers: Shanta Winston; Orquidea Escalona Discharging Clinician: Danilo Steel Anticipated Discharge Date/Time: 10/15/24 09:07 Patient Disposition: Home Activity: as tolerated Diet: as tolerated Discharge Instructions: Take all medications as prescribed even if feeling better Eat well balanced meals and stay hydrated Change positions slowly taking a break in between each position change If you should experience any chest pain, shortness of breath, temps >100.4 or any other worrisome symptoms please follow up with your PCP come back to the hospital Follow up with your primary in 1 weeks and follow-up with neurology in 6-8 weeks. You will receive a call from Dr. Winston regarding the results of your EEG. It has been a pleasure taking care of you thank you for using our services Patient Instructions: Antibiotic Form Patient Language: Indonesian Stand Alone Forms: General Discharge Information Follow-up/Referrals: Orquidea Escalona APN-C [Advanced Practice Nurse] - [place],DO Vipul [Primary Care Provider] - Shanta Winston MD [Physician] - Discharge Medications: Continued atorvastatin 20 mg Tablet 20 mg PO QPM aspirin 81 mg Tablet,Delayed Release (Dr/Ec) 81 mg PO DAILY carvedilol 3.125 mg PO BID metformin tablet 1,500 mg PO 0800 Patient Comments: Take 1000mg po with breakfast, 500mg po in the evening Rx Instructions: Take 1000mg po with breakfast, 500mg po in the evening zolpidem 10 mg PO QHS PRN (Reason: insomnia) furosemide 20 mg tablet 20 mg PO DAILY ezetimibe 10 mg tablet 10 mg PO QPM Jardiance 25 mg tablet 25 mg PO DAILY Entresto 24-26 mg tablet 1 tablet PO BID multivitamin [Daily Multi-Vitamin] Tablet 1 tablet PO DAILY Other Ambulatory Orders: [place] cardiac event monitor (Routine) Timeframe: 1 Month Location: Determined by Patient Ordered By: Danilo Steel [place] cardiac event monitor (Routine) Timeframe: 1 Month Location: Determined by Patient Ordered By: Orquidea Escalona Date of admission: 10/12/24 11:28 Primary Care Provider: WiltonVipul Admitting Provider: Elijah Sow Attending physician on admission: Danilo Steel Condition: Stable Quality VTE Prophylaxis VTE prophylaxis: mechanical ordered Hospitalist MIPS Heart Failure (Exclusion) Patient has history of Heart Transplant or Left Ventricular Assistive Device?: No IF YES, STOP HERE Heart Failure (Qualifier) Patient has current or prior documentation of LVEF less than or equal to 40%, or mod/servere depressed LVSF?: No IF NO, STOP HERE
--- NOTE | 2024-10-15 09:53 | WPDNEUROLOGY ---
Neurology EEG Report General Information Date of Study: 10/14/24 TEST EEG DIAGNOSIS Transient neurological symptoms. CONDITION OF RECORDING Awake, drowsy and asleep. EEG NUMBER 25-20 CLINICAL HISTORY Patient reports 2 days ago he had an episode that lasted about an hour ,of facial drooping along with slurred speech and inability to recall anything from that hour he gives no history of loss of consciousness . Reported he has had previous TIA but no seizures. EEG DESCRIPTION Basic resting occipital frequency consists medium voltage 8 to 9 hertz per 2nd alpha activity admixed with low-voltage 15 to 21 hertz per 2nd beta activity. A good anterior to posterior gradient is noted. Low-voltage beta activity seen during drowsiness admixed with waxing and waning alpha activity posteriorly. Bilateral symmetrical sleep activity seen with initially mixture of alpha theta and beta activity evolving into bilateral symmetrical sleep spindles. Photic stimulation not done. Hyperventilation not done. Non paroxysmal. Nonfocal. Nonlateralizing. IMPRESSION Normal record. Clinical correlation recommended.
== END 2024-10-15 10:25 | disposition home or self-care (01) ==
LOC: ANHED 10:15 → ANH3MEDSUR 18:16
PROVIDERS: Physician Assistant; Admitting Provider Internal Medicine; Emergency Provider Emergency Medicine; PCP Student in an Organized Health Care Education/Training Program; Visit Provider Physician Assistant
DX: G45.9 Transient cerebral ischemic attack, unspecified (principal); R29.700 NIHSS score 0; I48.91 Unspecified atrial fibrillation; I47.29 Other ventricular tachycardia; I25.10 Atherosclerotic heart disease of native coronary artery without angina pectoris; I10 Essential (primary) hypertension; E11.9 Type 2 diabetes mellitus without complications; E78.5 Hyperlipidemia, unspecified; F41.8 Other specified anxiety disorders; K21.9 Gastro-esophageal reflux disease without esophagitis; G47.33 Obstructive sleep apnea (adult) (pediatric); H91.90 Unspecified hearing loss, unspecified ear; Z79.82 Long term (current) use of aspirin; Z79.84 Long term (current) use of oral hypoglycemic drugs; Z79.899 Other long term (current) drug therapy; Z86.73 Personal history of transient ischemic attack (TIA), and cerebral infarction without residual deficits; Z90.49 Acquired absence of other specified parts of digestive tract; Z95.5 Presence of coronary angioplasty implant and graft; Z96.642 Presence of left artificial hip joint; Z98.42 Cataract extraction status, left eye; Z98.41 Cataract extraction status, right eye; Z99.89 Dependence on other enabling machines and devices
CPT/HCPCS: 36415; 70496; 70498; 70553; 80048; 80053; 80061; 82306; 82607; 82948; 83036; 83735; 84443; 85025; 93005; 95816; 96374; 96375; 99285; A9270; A9579; C8929; G0378; Q9957; Q9967